=== PATIENT | male | born 1995 | race Caucasian/White ===

== ENCOUNTER 2018-02-22 08:21 | Inpatient (IN) | payer BC, OTHER ==
[~2018-02-22] VITALS: Ht 182.9 cm; Wt 63.5 kg
[2018-02-22] MEDS ORDERED: MAG HYDROX/AL HYDROX/SIMETH 30 ML LIQUID UDC PO PRN (09:30)
[2018-02-22] MEDS ORDERED: CLONIDINE HCL 0.1 MG TABLET PO PRN (09:30)
[2018-02-22] MEDS ORDERED: ACETAMINOPHEN 325 MG TABLET PO PRN (09:30)
[2018-02-22] MEDS ORDERED: DIAZEPAM 5 MG TABLET PO PRN (09:30)
[2018-02-22] MEDS ORDERED: MIRALAX 17 GM POWD.PACK PO PRN (09:30)
[2018-02-22] MEDS ORDERED: DIAZEPAM 10 MG TABLET PO PRN ×2 (09:30)
[2018-02-22] MEDS ORDERED: MAGNESIUM HYDROXIDE 30 ML LIQUID UDC PO PRN (09:30)
[2018-02-22] MEDS ORDERED: METHOCARBAMOL 750 MG TABLET PO PRN (09:30)
[2018-02-22] MEDS ORDERED: LOPERAMIDE HCL 2 MG CAPSULE PO PRN ×2 (09:30)
[2018-02-22] MEDS ORDERED: ONDANSETRON 4 MG/2 ML VIAL IM PRN (09:30)
[2018-02-22] MEDS ORDERED: NICOTINE POLACRILEX 4 MG GUM-PK OF TEN BC PRN (09:30)
[2018-02-22] MEDS ORDERED: DICYCLOMINE HCL 20 MG TABLET PO PRN (09:30)
[2018-02-22] MEDS ORDERED: BUPRENORPHINE HCL 2 MG TAB.SUBL SL PRN (09:30)
[2018-02-22] MEDS ORDERED: diphenhydrAMINE 50 MG CAPSULE PO PRN (09:30)
[2018-02-22] MEDS ORDERED: ONDANSETRON ODT 4 MG TAB.RAPDIS SL PRN (09:30)
[2018-02-22] MEDS ORDERED: LORAZEPAM 2 MG/1 ML VIAL IM PRN (09:30)
[2018-02-22] MEDS ORDERED: IBUPROFEN 600 MG TABLET PO PRN (09:30)
[2018-02-22] MEDS ORDERED: NICOTINE 14 MG/24HR PATCH TD PRN (09:30)
--- NOTE | 2018-02-22 09:55 | NUR ---
PRE-ADMISSION NOTE PATIENT IS A 22YR OLD MALE MET IN INTAKE OFFICE ON 02/22/18 @ 0905. PATIENT PRESENTS UNKEMPT, AVOIDS EYE CONTACT AND IS INTOXICATED FROM RECENT SUBSTANCE USE. HE IS ABLE TO ANSWER QUESTION BUT SOMETIMES LOSES THOUGH PROCESS. VITAL SIGNS: BP 129/81, HR 105, T 98, O2SATS 94%. PATIENT IS HERE FOR DETOXIFICATION OF MULTIPLE SUBSTANCES. PATIENT ADMITTED TO [facility], WILL COMPLETE QUESTIONNAIRE WHEN PT ARRIVES ON FLOOR. COWS 6.
--- NOTE | 2018-02-22 10:15 | NUR ---
ADMISSION NOTE: PATIENT IS A 22 YEAR OLD MALE ADMITTED TO [facility] ON 02/22/18 FOR A MEDICALLY SUPERVISED WITHDRAWAL FROM POLY SUBSTANCES. HE IS INTOXICATE UPON ADMISSION FROM RECENT SUBSTANCE USE AND IS NOT CURRENTLY EXPERIENCING ANY WITHDRAWAL SYMPTOMS, HE IS UNKEMPT AND UNSHAVEN AND AVOIDS EYE CONTACT AND ROCKS BACK AND FORTH ON BED WHILE BEING QUESTIONED. HE HAS A FLAT AFFECT AND APPEARS SAD AND DEPRESSED. HE STATES HIS WITHDRAWAL SYMPTOMS FROM PAST DETOX INCLUDE: ACHY JOINTS, DIARRHEA, NAUSEA, STOMACH PAIN AND CHILLS. 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 HE STATES HE STARTED USING DRUGS AT AGE 10 WHEN HIS BROTHER GAVE HIM METH TO SMOKE AND THEN IT PROGRESSED TO " PRETTY MUCH ANY DRUG OUT THERE". HE STATES THAT THIS LAST RELAPSE WHICH HAS BEEN THE LAST YEAR STARTED WHEN HIS LIVE IN [place] BROKE UP WITH HIM HE WAS USING IN FRONT OF HER CHILD. HE STATES A HISTORY OF WITHDRAWAL INDUCED SEIZURES AND ACCIDENTAL OVERDOSES, THE LAST SEIZURE BEING 9 MONTHS AGO, HE DID NOT SEEK MEDICAL CARE. PATIENT IS 6 FOOT TALL AND WEIGHS 140 LBS PER STANDING SCALE AND HE REPORTS A WEIGHT LOSS OF 30-40 LBS IN THE PAST 3 MONTHS DUE TO BEING ON SO MANY DRUGS AND NOT TAKING CARE OF HIMSELF. PATIENT ARRIVED FROM [place], [place] WHERE HE RESIDED ALONE IN AN APARTMENT, HE STATES HIS MOTHER HELPED HIM TO GET INTO REHAB. HIS BROTHER IS A HEROIN/METH ADDICT AND IS CURRENTLY SERVING A 2YR ALF SENTENCE AND HE STATES HIS SISTER IS ADDICTED TO VYVANSE AND [facility]DERALL. PATIENT STATES HE IS HERE BECAUSE" I'M A DRUG ADDICT AND I NEED HELP, I NEED TO FIND A BETTER WAY TO LIVE AND COMMIT TO IT OR I'M GONNA ". HE STATES THAT HE WILL BE IN A LOT OF TROUBLE IF HE GOES BACK TO [place] HE COMMITTED A FELONY AND WAS CAUGHT, HE STOLE 1000 PILLS AND FINGERPRINTS TAKEN LED BACK TO HIM. SUBSTANCE OF ABUSE HISTORY: BENZODIAZEPINES ( XANAX)( SNORT OR IV) 4-6 MG/DY FOR 1 YEAR LAST USED 02/22/18 -4MG VALIUM 40-60MG /DY ( SNORT /IV) FOR 1 YEAR LAST USED 02/22/18 - 40MG HEROIN IV 0.5-1G/ DY FOR 1 YEAR LAST USED 02/21/18 - 0.5G OXYCODONE NASAL INSUFFLATION 200MG FOR 1 YEAR LAST USED 02/22/18 - 200MG MORPHINE SULFATE PO/IV 90MG DAILY FOR 1 YEAR LAST USED 02/23/16 - 50MG METHAMPHETAMINE 0.5-1G DAILY IV FOR 1 YEAR LAST USED 02/21/18 - 0.5G SOMA/ COCAINE NON DAILY USE PATIENT STATES HE HAS BEEN USING DRUGS AND ALCOHOL FOR 8 YEARS BUT SUCCESSFULLY DETOXED FROM ALCOHOL AND REMAINS IN REMISSION. PATIENT HAS A SCABBED ABSCESS ON LEFT AC AND SCABS ALL OVER LEGS THAT HE PICKS, MD PLACED PT ON PO ANTIBIOTICS. HE STATES HE ATTENDS AA MEETINGS AND HAS A SPONSOR. HE STATES HE REALLY WANTS TO BE SOBER AGAIN OR HE KNOWS NEXT TIME HE WILL PROBABLY OD AND . PATIENT HAS HAD 2 SUICIDE ATTEMPTS, THE FIRST ONE WHEN HE WAS 13 WHERE HE TOOK A LOAD OF PILLS INTENDING TO OVERDOSE BUT WAS NOT SUCCESSFUL, HE STATES NO SI/HI AT THIS TIME OF ADMISSION. PATIENT ADMITTED TO FLOOR, BLOOD LABS DRAWN AND UDS SENT TO LAB CONTINUE TO FOLLOW MD PLAN OF CARE.
[2018-02-22 10:49] LABS: BASOPHILS # (AUTO) 0.1 K/uL (0.0-8.0); BASOPHILS % (AUTO) 0.8 % (0.0-2.0); EOSINOPHILS # (AUTO) 0.3 K/uL (0.0-0.7); EOSINOPHILS % (AUTO) 3.1 % (0.0-7.0); HEMATOCRIT 43.4 % (36.7-47.1); HEMOGLOBIN 14.9 g/dL (12.5-16.3); LYMPHOCYTES # (AUTO) 3.6 K/uL (20.0-40.0); LYMPHOCYTES % (AUTO) 32.4 % (20.5-51.5); MEAN CORPUSCULAR HEMOGLOBIN 29.1 uug (23.8-33.4); MEAN CORPUSCULAR HGB CONC 34 g/dL (32.5-36.3); MEAN CORPUSCULAR VOLUME 84.8 fL (73.0-96.2); MONOCYTES # (AUTO) 1.3 K/uL (2.0-10.0); MONOCYTES % (AUTO) 11.6 % (0.0-11.0); NEUTROPHILS # (AUTO) 5.8 K/uL (1.8-8.9); NEUTROPHILS % (AUTO) 52.1 % (38.5-71.5); PLATELET COUNT (AUTO) 280 K/uL (152-348); RED BLOOD CELL COUNT(AUTO) 5.12 MIL/uL (4.06-5.63); WHITE BLOOD COUNT (AUTO) 11.1 K/uL (3.6-10.2)
[2018-02-22 10:58] LABS: ALANINE AMINOTRANSFERASE 48 U/L (16-63); ALKALINE PHOSPHATASE 80 U/L (50-136); ASPARTATE AMINOTRANSFERASE 71 U/L (15-37); BILIRUBIN,TOTAL 0.3 mg/dL (0.2-1.0); CARBON DIOXIDE 27 mmol/L (21-32); CHLORIDE 103 mmol/L (98-107); CREATININE 1.2 mg/dL (0.6-1.3); GLUCOSE 83 mg/dL (74-106); MAGNESIUM 2.1 mg/dL (1.8-2.4); POTASSIUM 3.5 mmol/L (3.5-5.1); TOTAL PROTEIN, SERUM 7.8 g/dL (6.4-8.2); UREA NITROGEN, BLOOD 17 mg/dL (7-18)
[2018-02-22 11:13] LABS: ETHANOL < 3 MG/DL (0-0)
[2018-02-22 11:25] LABS: THYROID STIMULATING HORMONE 2.573 mIU/mL (0.358-3.740)
[2018-02-22 12:00] VITALS: BP 121/77
[2018-02-22 12:01] LABS: *AMPHETAMINE, URINE POSITIVE (NEGATIVE); *BARBITURATE, URINE NEGATIVE (NEGATIVE); *CANNABINOID, URINE POSITIVE (NEGATIVE); *COCCAINE, URINE POSITIVE (NEGATIVE); *OPIATE, URINE POSITIVE (NEGATIVE); *PHENCYCLIDINE SCREEN,URINE NEGATIVE (NEGATIVE)
[2018-02-22] MEDS: CEPHALEXIN MONOHYDRATE 500 MG CAPSULE PO SCH ×2 (14:46→20:30)
[2018-02-22 16:00] VITALS: BP 116/68
[2018-02-22] MEDS: PHENOBARBITAL 60 MG TABLET PO SCH ×2 (16:38→20:31)
[2018-02-22] MEDS: BUPRENORPHINE HCL 2 MG TAB.SUBL SL SCH ×2 (16:39→20:30)
--- NOTE | 2018-02-22 18:53 | NUR ---
END OF SHIFT : PATIENT IS A 22 YR OLD MALE ADMITTED TO [facility] ON 02/22/18 FOR A MEDICALLY SUPERVISED DETOX FROM BENZODIAZEPINES, OPIATES, METH , COCAINE AND MARIJUANA. HE HAS STARTED A 5 DAY PHENOBARBITAL AND SUBUTEX TAPER TOLERATED WELL. HE APPEARS SAD AND DEPRESSED, IS DISHEVELED AND UNSHAVEN. HIS WITHDRAWAL SYMPTOMS INCLUDE, LETHARGY, CHILLS, SWEATS, DECREASED APPETITE, ACHING JOINTS. NO PRN MEDS WERE REQUESTED OR REQUIRED THIS SHIFT. PT HAD A FLUID INTAKE OF 1800ML, 3 VOIDS AND I BM. COWS 10 AND CIWA 10 @ 1600. CONTINUE TO FOLLOW MD PLAN OF CARE. ENDORSED TO MOVING CONSULTANT.
--- NOTE | 2018-02-22 19:45 | NUR ---
Start of Shift Note Received 22 y/o male nidia, admitted for medically supervised withdrawals from benzos and opiates. Px is placed on 5 day Phenobarbital and 5 day Subutex taper started today, 02/22/2018. Px is tolerating it. Last reported COWS 10 and CIWA 10 by AM shift nurse. During the rounds at 1945, px is awake in his room sitting on the edge of the bed. Px appears disheveled, with dirty finger nails. Px looks anxious, with flat affect. Px has poor eye contact and soft speech. Unfinished snacks and drinks noted on top of bed side table and cabinet. Px stated "My anxiety is high, it's about 7 to 8/10. I have body aches of 6/10." Px complained of watery stools 3x with stomach cramps. Px added "Do I have Seroquel tonight? Seroquel helped me sleep in other facilities." Px was told that he doesn't have Seroquel tonight but he has Benadryl 50 mg PO. Bed on lowest position, side rails up 2x, and call light within reach. We'll continue to monitor.
[2018-02-22 20:00] VITALS: BP 125/71
[2018-02-22] MEDS: GABAPENTIN 300 MG CAPSULE PO SCH (20:30)
[2018-02-22] MEDS: LACTOBACILLUS RHAMNOSUS GG 1 EACH CAPSULE PO SCH (20:30)
--- NOTE | 2018-02-22 20:30 | NUR ---
PRN medications At 2028, px was given Imodium 2 mg/cap, 2 caps PO as PRN med for loose stools. At 2037, Px was given Valium 10 mg/tab, 1 tab PO as PRN med for CIWA 13. At 2150, px was given Benadryl 50 mg/cap, 1 cap PO as PRN med as requested for insomnia. At 2208, px was given Nicotine gum 4 mg as requested by the px. We'll continue to monitor.
--- NOTE | 2018-02-22 21:30 | NUR ---
Reassessment of LBM Px had no episode of loose stool after administration of Imodium 4 mg PO as PRN med. We'll continue to monitor.
--- NOTE | 2018-02-22 21:40 | NUR ---
Reassessment of anxiety Px stated that his anxiety improved. CIWA at this moment is 10. We'll continue to monitor.
--- NOTE | 2018-02-22 23:00 | NUR ---
Reassessment of insomnia Px is still awake after an hour of administration of Benadryl 50 mg PO as PRN med. We'll continue to monitor.
[2018-02-23] VITALS: BP 122/73
[2018-02-23 04:00] VITALS: BP 119/70
--- NOTE | 2018-02-23 04:00 | NUR ---
COWS and CIWA deferred COWS and CIWA deferred at 0000 and 0400 due to the px is asleep, to assess if the px is awake per doctor's order. We'll continue to monitor.
--- NOTE | 2018-02-23 07:10 | NUR ---
End of Shift Note During the shift at 2038, px received Imodium 4 mg PO for 3x loose stools. It was effective. At 2038, px received Valium 10 mg PO for CIWA 13 as PRN med, it was effective. CIWA dropped to 10. At 2150, px received Benadryl 50 mg PO for insomnia. It was effective. Px slept for 6.5 hours. At 2208, px received Nicotine gum 4 mg. Px's oral intake is 1 L, voided 2x, without BM. At 06, px is asleep on bed in fowlers position. Last COWS 10 and CIWA 10. Bed on lowest position, side rails up 2x, and call light within reach. We'll continue to monitor. Px endorsed to AM shift nurse.
--- NOTE | 2018-02-23 07:30 | NUR ---
Start of Shift Note Pt. is a 22 y/o male admitted for the medically supervised withdrawal of Opiates, and Benzodiazepines. Pt. was placed on a 5 day Phenobarbital, and a 5 day Subutex taper. During the PM shift the pt. received PRN Imodium 4 mg PO for 3x loose stool, Valium 10 mg PO for CIWA 13 and Benadryl 50 mg PO for insomnia. Pt. slept for 6.5 hours. Endorsed pt. is behaviorally appropriate and follows directions. Received pt. in his room laying on his bed with his eyes closed. Pt. responds to name and touch. Room is malodorous and unkempt. Last COWS 10 and CIWA 10. Bed on lowest position, side rails up 2x, and call light within reach. Will continue to monitor pt.s behavior for safety.
[2018-02-23 08:20] VITALS: BP 114/72
[2018-02-23] MEDS: GABAPENTIN 300 MG CAPSULE PO SCH (08:57)
[2018-02-23] MEDS: CEPHALEXIN MONOHYDRATE 500 MG CAPSULE PO SCH (08:59)
[2018-02-23] MEDS: LACTOBACILLUS RHAMNOSUS GG 1 EACH CAPSULE PO SCH (08:59)
[2018-02-23] MEDS ORDERED: TUBERCULIN,PURIF.PROT.DERIV. 5 TU/0.1 ML TEST ID ONE (09:00)
[2018-02-23] MEDS ORDERED: PHENOBARBITAL 60 MG TABLET PO SCH (09:00)
[2018-02-23] MEDS ORDERED: BUPRENORPHINE HCL 2 MG TAB.SUBL SL SCH (09:00)
--- NOTE | 2018-02-23 10:05 | NUR ---
AMA Pt. stated that he did not want to be here any more. Pt. states "I have friends and a better place to go than here, I'm not ready to for this." Pt. educated on the risk and consequences for leaving AMA. Pt. verbalize understanding of AMA decision. Multiple staff members including this service writer, Dr. Sheehan and Case management spoke to the pt. Pt. still refused to stay. V.S. WNL during time of discharge. Pt. is A/O X 4 and refused any SI/HI. Pt. given D/C paperwork to sign and copies made and put in chart. All belongings returned to pt. and he was escorted out the unit at this time by staff.
[2018-02-23 13:06] LABS: HEPATITIS B SURFACE AG Negative (Negative)
[2018-02-23] MEDS ORDERED: HYDROXYZINE PAMOATE 25 MG CAPSULE PO PRN (15:30)
[2018-02-24] MEDS ORDERED: BUPRENORPHINE HCL 2 MG TAB.SUBL SL SCH ×2 (09:00→15:00)
[2018-02-24] MEDS ORDERED: PHENOBARBITAL 60 MG TABLET PO SCH (09:00)
[2018-02-25] MEDS ORDERED: PHENOBARBITAL 60 MG TABLET PO SCH (09:00)
[2018-02-26] MEDS ORDERED: BUPRENORPHINE HCL 2 MG TAB.SUBL SL SCH (09:00)
[2018-02-26] MEDS ORDERED: PHENOBARBITAL 60 MG TABLET PO SCH (09:00)
== END 2018-02-23 10:07 | disposition left against medical advice (07) | DRG 894 ==
LOC: EDBD 09:01 → SRC 09:01
PROVIDERS: ADMIT Internal Medicine; ATTEND Internal Medicine
PROC: HZ2ZZZZ Detoxification Services for Substance Abuse Treatment (ICD-10-PCS; principal; 2018-02-22)
DX: F13.239 Sedative, hypnotic or anxiolytic dependence with withdrawal, unspecified (principal); F15.20 Other stimulant dependence, uncomplicated; Z86.74 Personal history of sudden cardiac arrest; L03.114 Cellulitis of left upper limb; L03.113 Cellulitis of right upper limb; F11.23 Opioid dependence with withdrawal; S51.032S Puncture wound without foreign body of left elbow, sequela; S51.031S Puncture wound without foreign body of right elbow, sequela; X78.8XXS Intentional self-harm by other sharp object, sequela; Z91.5 Personal history of self-harm; F17.210 Nicotine dependence, cigarettes, uncomplicated; Z81.1 Family history of alcohol abuse and dependence; F10.21 Alcohol dependence, in remission; F32.9 Major depressive disorder, single episode, unspecified; F14.10 Cocaine abuse, uncomplicated
CPT/HCPCS: 36415; 80307; 80324; 80346; 80349; 80353; 80361; 83735; 84443; 85025; 86592; 86705; 86803; 87040; 87340; 87806; G0480; J8499; Q0163

== ENCOUNTER 2018-02-23 16:35 | Inpatient (IN) | payer BC, OTHER ==
[~2018-02-23] VITALS: Ht 182.9 cm; Wt 63.5 kg
--- NOTE | 2018-02-23 17:40 | NUR ---
PRE ADMISSION Patient at intake office, presents calm and cooperative, patient was admitted to [facility] on 02/22/2018 at 1015, but left AMA on 02/23/2018 at 1007, patient returned to [facility] on 02/23/2018 at 1740. Patient reports he left [facility] and walked around, and went to a bar, where he consumed half of a mixed drink, rum and coke, patient denies any drug use. Patient bp: 131/81 hr: 74 t: 98.0 r: 15 o2 sat: 100% room air. Patient reports he wants to complete his detox, and is motivated towards his sobriety. Patient denies any allergies. Patient was educated regarding unit policies and procedures. Dr. Sissy willams.
--- NOTE | 2018-02-23 18:22 | NUR ---
ADMISSION Patient on unit at 1822, patients body search completed by male intake staff, no contraband was found. Patients body assessment completed, noted with multiple scabs on body, per patient picks no his skin noted with scab on left arm. Patient is 140 lbs and is 6 feet tall. Reports family history of substance use: brother and sister, both use drugs. Patient was re oriented to unit and to room, education regarding call light was provided. Patients Patient bp: 131/81 hr: 74 t: 98.0 r: 15 o2 sat: 100% room air. Patient was admitted to [facility] on 02/22/2018 at 1015, but left AMA on 02/23/2018 at 107, patient returned to [facility] on 02/23/2018 at 1730. Patient reports he left [facility] and walked around, and went to a bar, where he consumed half of a mixed drink, rum and coke, patient denies any drug use. Patient noted disheveled, has poor eye contact, noted with flat affect and anxious, depressed mood. Reports treatment history of: [facility], 4 years ago. Patient reports his longest period of sobriety was for 9 months, 3 or 4 years ago. Patient reports he began using drugs at the age of 10, since then has been using any substance " any drug out there". Reports one year ago, he began using on a daily basis after a break up with his girlfriend. Patient reports substance use history of: 1. Xanax (intranasally or IV) 4-6 MG daily for one year, last used 02/22/2018-4m 2. Valium (intranasally or IV) 40-60MG daily for one year, last used 02/22/2018, 40mg 3. oxycodone (intranasally) 200mg daily for one year, last used 02/22/2018-50mg 4. morphine sulfate (PO/IV) 90mg daily for one year last used 02/22/2018-50mg 5. heroin (IV) 0.5-1gram) daily for one year, last used 02/21/2018-0.5grams 6. methamphetamine 0.5-1gram daily IV for one year, last used 02/21/2018 0.5gram Patient reports that when he left [facility] AMA, he only had half a drink of rum and coke, patient denies using any of the above substance. Patients respirations are even and unlabored, lungs clear upon auscultations. Patient reports past medical history of: asthma, depression, and genital herpes. Patients abdomen is soft and non distended, bowel sounds heard in all quadrants. Patients with admitting cow score of: 7 and ciwa score of: 8. Safety measures are in place. Call light kept with in reach, will continue to monitor closely. Patient was seen by dr. phillips at intake office.
[2018-02-23] MEDS ORDERED: MIRALAX 17 GM POWD.PACK PO PRN (18:30)
[2018-02-23] MEDS ORDERED: ONDANSETRON 4 MG/2 ML VIAL IM PRN (18:30)
[2018-02-23] MEDS ORDERED: ONDANSETRON ODT 4 MG TAB.RAPDIS SL PRN (18:30)
[2018-02-23] MEDS ORDERED: CLONIDINE HCL 0.1 MG TABLET PO PRN (18:30)
[2018-02-23] MEDS ORDERED: MAGNESIUM HYDROXIDE 30 ML LIQUID UDC PO PRN (18:30)
[2018-02-23] MEDS ORDERED: IBUPROFEN 600 MG TABLET PO PRN (18:30)
[2018-02-23] MEDS ORDERED: diphenhydrAMINE 50 MG CAPSULE PO PRN (18:30)
[2018-02-23] MEDS ORDERED: DIAZEPAM 5 MG TABLET PO PRN (18:30)
[2018-02-23] MEDS ORDERED: DIAZEPAM 10 MG TABLET PO PRN (18:30)
[2018-02-23] MEDS ORDERED: DICYCLOMINE HCL 20 MG TABLET PO PRN (18:30)
[2018-02-23] MEDS ORDERED: METHOCARBAMOL 750 MG TABLET PO PRN (18:30)
[2018-02-23] MEDS ORDERED: NICOTINE 14 MG/24HR PATCH TD PRN (18:30)
[2018-02-23] MEDS ORDERED: LORAZEPAM 2 MG/1 ML VIAL IM PRN (18:30)
[2018-02-23] MEDS ORDERED: MAG HYDROX/AL HYDROX/SIMETH 30 ML LIQUID UDC PO PRN (18:30)
[2018-02-23] MEDS ORDERED: BUPRENORPHINE HCL 2 MG TAB.SUBL SL PRN (18:30)
[2018-02-23] MEDS ORDERED: NICOTINE POLACRILEX 4 MG GUM-PK OF TEN BC PRN (18:30)
[2018-02-23] MEDS ORDERED: ACETAMINOPHEN 325 MG TABLET PO PRN (18:30)
[2018-02-23] MEDS ORDERED: LOPERAMIDE HCL 2 MG CAPSULE PO PRN ×2 (18:30)
--- NOTE | 2018-02-23 18:59 | NUR ---
END OF SHIFT Patient admitted during shift, with Dx: opiate/bzo withdrawal. Continues under very close observation. Patients endorsed to overnight stocker nurse, all pertinent information was discussed. patient with last cow score of: 7 and ciwa score of: 8 presenting with: c/o chills, difficulty sitting still, mild bone and joint aches, tremors that can be felt but not seen, and anxiety. Safety measures are in place. Call light kept within reach, will continue to monitor closely.
[2018-02-23 19:19] LABS: *AMPHETAMINE, URINE NEGATIVE (NEGATIVE); *BARBITURATE, URINE POSITIVE (NEGATIVE); *CANNABINOID, URINE POSITIVE (NEGATIVE); *COCCAINE, URINE NEGATIVE (NEGATIVE); *OPIATE, URINE POSITIVE (NEGATIVE); *PHENCYCLIDINE SCREEN,URINE NEGATIVE (NEGATIVE)
--- NOTE | 2018-02-23 19:46 | NUR ---
START OF SHIFT NOTE Rcvd. Report from outgoing nurse. Pt. is in his room and is A/O to person, place, time, and purpose. Pt. presents w/ anxiety, agitation, depressed and withdrawn mood, disheveled and unkempt appearance, flushed face, chills, sweats, body aches, and running nose. Pt. rcvd no PRN medications. Pt. is not yet on a taper. Pt. denies S/I and H/i. Last COWS 7 and CIWA 8 @ 1830. Call light within reach. Pt. will continue to be monitored and needs met.
[2018-02-23 19:51] LABS: BASOPHILS # (AUTO) 0.1 K/uL (0.0-8.0); BASOPHILS % (AUTO) 0.8 % (0.0-2.0); EOSINOPHILS # (AUTO) 0.2 K/uL (0.0-0.7); EOSINOPHILS % (AUTO) 2.4 % (0.0-7.0); HEMOGLOBIN 13.1 g/dL (12.5-16.3); LYMPHOCYTES # (AUTO) 2.6 K/uL (20.0-40.0); LYMPHOCYTES % (AUTO) 27.5 % (20.5-51.5); MEAN CORPUSCULAR HEMOGLOBIN 29.3 uug (23.8-33.4); MEAN CORPUSCULAR HGB CONC 35 g/dL (32.5-36.3); MEAN CORPUSCULAR VOLUME 84.7 fL (73.0-96.2); MONOCYTES # (AUTO) 0.9 K/uL (2.0-10.0); MONOCYTES % (AUTO) 9.9 % (0.0-11.0); NEUTROPHILS # (AUTO) 5.5 K/uL (1.8-8.9); NEUTROPHILS % (AUTO) 59.4 % (38.5-71.5); PLATELET COUNT (AUTO) 258 K/uL (152-348); RED BLOOD CELL COUNT(AUTO) 4.48 MIL/uL (4.06-5.63); WHITE BLOOD COUNT (AUTO) 9.3 K/uL (3.6-10.2)
[2018-02-23 20:00] VITALS: BP 135/92
[2018-02-23 20:06] LABS: ETHANOL < 3 MG/DL (0-0)
[2018-02-23 20:10] LABS: ALANINE AMINOTRANSFERASE 92 U/L (16-63); ALKALINE PHOSPHATASE 73 U/L (50-136); ASPARTATE AMINOTRANSFERASE 98 U/L (15-37); BILIRUBIN,TOTAL 0.2 mg/dL (0.2-1.0); CARBON DIOXIDE 29 mmol/L (21-32); CHLORIDE 104 mmol/L (98-107); GLUCOSE 94 mg/dL (74-106); MAGNESIUM 1.9 mg/dL (1.8-2.4); TOTAL PROTEIN, SERUM 7.4 g/dL (6.4-8.2); UREA NITROGEN, BLOOD 13 mg/dL (7-18)
[2018-02-23] MEDS: GABAPENTIN 300 MG CAPSULE PO SCH (20:10)
[2018-02-23] MEDS: BUPRENORPHINE HCL 2 MG TAB.SUBL SL SCH ×2 (20:11→22:00)
[2018-02-23] MEDS: DIAZEPAM 10 MG TABLET PO PRN (20:11)
[2018-02-23] MEDS: CEPHALEXIN MONOHYDRATE 500 MG CAPSULE PO SCH (20:11)
[2018-02-23] MEDS: PHENOBARBITAL 60 MG TABLET PO SCH ×2 (20:11→22:00)
--- NOTE | 2018-02-23 20:11 | NUR ---
PRN ADMINISTRATION Pt. rcvd PRN Valium 10 mg for anxiety and panic attack, COWS 10. Will reassess pt. in 1 hr.
[2018-02-23] MEDS: LACTOBACILLUS RHAMNOSUS GG 1 EACH CAPSULE PO SCH (20:12)
--- NOTE | 2018-02-23 21:11 | NUR ---
PRN REASSESSMENT Pt. is in his room watching TV in bed. Pt. breathing is even and unlabored. Pt. states relief ofd symptoms.
--- NOTE | 2018-02-23 21:29 | NUR ---
PRN ADMINSTRATION Pt. rcvd PRN Nicotine gum, per pt.'s request. Pt. states they don't want to smoke. Will assess effectiveness in 1 hr.
--- NOTE | 2018-02-23 21:34 | NUR ---
PRN ADMINISTRATION Pt. rcvd PRN Benadryl 50 mg for itching. Will reassess in 1 hr.
[2018-02-23] MEDS ORDERED: PHENOBARBITAL 60 MG TABLET PO SCH (22:00)
--- NOTE | 2018-02-23 22:29 | NUR ---
PRN REASSESSMENT PRN medication effective. Pt. states no desire to smoke.
--- NOTE | 2018-02-23 22:34 | NUR ---
PRN REASSESSMENT Pt. is in bed w/ his eyes closed. Pt.'s breathing is unlabored and even.
--- NOTE | 2018-02-24 00:01 | NUR ---
RN NOTE Pt. deferred COWS and CIWA. Pt. refused V/S. Pt. is in bed w/ his eyes closed. Pt.'s breathing is unlabored even.
--- NOTE | 2018-02-24 04:01 | NUR ---
RN NOTE Pt deferred COWS and CIWA, and refused V/S. Pt. is in bed w/ his eyes closed. Pt.'s breathing is unlabored and even.
--- NOTE | 2018-02-24 07:12 | NUR ---
END OF SHIFT NOTE Endorsed pt. to oncoming nurse. Pt. is a 22 y/o male A/O to person, place, time, and purpose. Pt. was admitted for medically supervised withdrawal from Opiates and Benzodiazepines. Pt. continues to present w/ anxiety, agitation, depressed and withdrawn mood, disheveled and unkempt appearance, flushed face, chills, sweats, body aches, and running nose. Pt. rcvd PRN Vlium 10 mg @ 2010 for increased anxiety and Benadryl 50 mg @ 2133 for itchiness, both noted effective. Pt.s fluid intake was 855 ml. Pt. voided 2 times and slept for 7 hrs. Last COWS 10 and CIWA 12 @ 1999. Call light within reach.
--- NOTE | 2018-02-24 07:19 | NUR ---
BEGINNING OF SHIFT Patient endorsement report received from casino shift manager nurse, all pertinent information discussed. Patient is a 22 year old male with admitting Dx: Opiate/BZO withdrawal. Patient currently under close observation, patient currently with ongoing phenobarbital and Subutex taper, as ordered. patients fall and seizure precautions in place and observed at all times. Patient received in bed with eyes closed, respirations are even and unlabored, responsive to verbal stimuli. will monitor closely, will educated regarding plan of care for the day, and medication regimen. Patient received PRN: Valium and Benadryl during casino shift manager. last ciwa score of: 12, cow score of: 10. patient slept 7 hours. will continue to monitor closely. safety measures in place.
[2018-02-24 08:33] VITALS: BP 151/97
[2018-02-24] MEDS: LACTOBACILLUS RHAMNOSUS GG 1 EACH CAPSULE PO SCH ×2 (08:34→20:48)
[2018-02-24] MEDS: GABAPENTIN 300 MG CAPSULE PO SCH ×3 (08:34→20:48)
[2018-02-24] MEDS: PHENOBARBITAL 60 MG TABLET PO SCH ×3 (08:34→20:47)
[2018-02-24] MEDS: CEPHALEXIN MONOHYDRATE 500 MG CAPSULE PO SCH ×3 (08:34→20:47)
[2018-02-24] MEDS: BUPRENORPHINE HCL 2 MG TAB.SUBL SL SCH ×3 (08:35→20:47)
[2018-02-24] MEDS ORDERED: TUBERCULIN,PURIF.PROT.DERIV. 5 TU/0.1 ML TEST ID ONE (09:00)
[2018-02-24 10:35] VITALS: BP 144/75
[2018-02-24] MEDS: DIAZEPAM 10 MG TABLET PO PRN (10:36)
--- NOTE | 2018-02-24 10:36 | NUR ---
PRN VALIUM Patient presented with: difficulty sitting still, patient noted pacing in room, unable to sit still, patient with wringing hands, and fidgety. Patient also presented with: tremors, increase anxiety, and restlessness with ciwa score of: 13. Patient was administered valium 10mg PO as ordered for s/sx of withdrawal. will monitor effectiveness of medication. bp: 144/15 p: 92.
--- NOTE | 2018-02-24 11:36 | NUR ---
VALIUM REASSESSMENT Patient presented with decrease in restlessness, current ciwa score of: 12. will continue to monitor closely.
[2018-02-24 13:21] VITALS: BP 138/89
[2018-02-24 17:11] VITALS: BP 143/82
--- NOTE | 2018-02-24 17:11 | NUR ---
Therapist prompted client to attend daily group sessions. Client related that he would make an attempt to attend the next group.
[2018-02-24] MEDS: HYDROXYZINE PAMOATE 25 MG CAPSULE PO PRN (17:29)
--- NOTE | 2018-02-24 17:31 | NUR ---
PRN CLONIDINE/VISTARIL Patient administered clonidine 0.1mg PO and Vistaril 25mg PO as ordered for increase anxiety, patient noted with restlessness and unable to sit still, provided with non pharmacological interventions with no relief, will monitor effectiveness of medications. safety measures in place, call light kept with in reach, will continue to monitor.
--- NOTE | 2018-02-24 17:46 | NUR ---
ENDORSED CARE/end of shift Patient monitored closely during shift. Patient alert and oriented x4. Admitting Dx: Opiate/BZO withdrawal. Patient noted disheveled, with depressed, and anxious mood. Patient has flat affect, and poor eye contact. Patient continues on phenobarbital and Subutex taper as ordered. During shift patient presented with: c/o chills, c/o hot/cold feeling, difficulty sitting still, bone and joint aches, nasal congestion, abdominal cramps, tremors, anxiety, gooseflesh, initial cow score of: 15, and ciwa score of: 13, last cow score of: 12, and ciwa score of: 13. Received PRN: Valium 10mg PO for s/sx of withdrawal as ordered during shift, medication effective one hour post administration. Patient also was administered Clonidine and Vistaril as ordered for increase anxiety, and restlessness. Detox medication effective at reducing withdrawal symptoms. Patient encouraged participation in therapy sessions, patient denies any SI/HI, noted attending and participating. Patient was encouraged to verbalize feelings, encouraged to develop coping skills and utilization of non pharmacological interventions. Encouraged patient to increase PO fluid intake as tolerated. Patients safety measures are in place. call light kept within reach, will continue to monitor. Patient endorsed care to staff nurse, all pertinent information was discussed.
--- NOTE | 2018-02-24 17:47 | NUR ---
ENDORSEMENT Pt endorsed to me by nurse. All information received.
--- NOTE | 2018-02-24 18:31 | NUR ---
JAZZ REID Pt observed in room on bed watching television.
--- NOTE | 2018-02-24 19:14 | NUR ---
ENDORSED CARE/end of shift Pt endorsed to me and then endorsed to next shift.
--- NOTE | 2018-02-24 19:55 | NUR ---
START OF SHIFT NOTE Rcvd report from outgoing nurse. Pt is in his room. Pt. is 22 y/o male A/O to person, place, time, and purpose. Pt. was admitted for medically supervised withdrawal from Opiates and Benzodiazepines. Pt. presents w/ anxiety agitation, flat affect, withdrawn mood, sweats, chills, body aches, disheveled and unkempt appearance, and odorous. Pt. rcvd PRN Valium @ 1036 and Clonidine and Vistaril @ 1730, both noted effective. Pt. denies S/I and H/I. Last COWS 12 and CIWA 12 @ 1600. Call light within reach. Pt. will continue to be monitored and needs met.
[2018-02-24 20:00] VITALS: BP 113/78
[2018-02-24] MEDS: CLONIDINE HCL 0.1 MG TABLET PO SCH (20:48)
--- NOTE | 2018-02-25 00:10 | NUR ---
COWS AND CIWA DEFERRED. V/S REFUSED 0000 COWS and CIWA deferred and V/S refused by pt. Pt. is in bed w/ his eyes closed. Pt.'s breathing is unlabored and even.
--- NOTE | 2018-02-25 04:08 | NUR ---
COWS AND CIWA DEFERRED. V/S REFUSED 0400 COWS and CIWA deferred, and V/S refused by pt. Pt. is in bed w/ his eyes closed. Pt.'s breathing is unlabored and even.
--- NOTE | 2018-02-25 07:15 | NUR ---
END OF SHIFT NOTE Endorsed pt. to oncoming nurse. Pt is in his room. Pt. is 22 y/o male A/O to person, place, time, and purpose. Pt. was admitted for medically supervised withdrawal from Opiates and Benzodiazepines. Pt. continues to present w/ anxiety agitation, flat affect, withdrawn mood, sweats, chills, body aches while awake. Pt. also had a odorous, disheveled, and unkempt appearance. Pt. rcvd no PRN medications during the night. Pt. continues to deny S/I and H/I. Pt.s fluid intake was 355 ml. Pt. voided 1 time and slept for 9 hrs. Last COWS 10 and CIWA 12 @ 1999. Call light within reach.
--- NOTE | 2018-02-25 07:30 | NUR ---
Start of Shift Note Pt is a 22 y/o , male admitted for the medically supervised withdrawal of opiates, benzodiazepines, and Methamphetamines. Pt. was placed on a Subutex and Phenobarbital taper. Received pt. in his room. Pt. is A/O X 4. Pt. is disheveled, malodorous, with and cluttered room. Upon approach pt. has a depressed effect, with poor eye contact, and a guarded demeanor. Pt. reports body aches and presents with facial flushing and fine hand tremors. No PRN medications were given during the night. Pt. continues to deny S/I and H/I. Pt. slept for 9 hrs. Last COWS 10 and CIWA 12 @ 1999. Encouraged pt. to keep his personal space clean and tidy. Encouraged to verbalize any concerns and emotions. Will continue to monitor pt's behavior for safety.
[2018-02-25 08:00] VITALS: BP 128/87
[2018-02-25] MEDS: LACTOBACILLUS RHAMNOSUS GG 1 EACH CAPSULE PO SCH ×2 (08:51→21:56)
[2018-02-25] MEDS: CEPHALEXIN MONOHYDRATE 500 MG CAPSULE PO SCH ×3 (08:51→21:56)
[2018-02-25] MEDS: CLONIDINE HCL 0.1 MG TABLET PO SCH ×2 (08:52→21:57)
[2018-02-25] MEDS: GABAPENTIN 300 MG CAPSULE PO SCH ×3 (08:53→21:57)
[2018-02-25] MEDS: VENLAFAXINE XR 75 MG CAP.SR.24H PO SCH (08:53)
[2018-02-25] MEDS ORDERED: PHENOBARBITAL 60 MG TABLET PO SCH ×2 (09:00→21:00)
[2018-02-25] MEDS ORDERED: BUPRENORPHINE HCL 2 MG TAB.SUBL SL SCH (09:00)
[2018-02-25 12:00] VITALS: BP 112/71
[2018-02-25 12:07] LABS: HEPATITIS B SURFACE AG Negative (Negative)
[2018-02-25] MEDS: PHENOBARBITAL 60 MG TABLET PO SCH ×2 (13:16→17:07)
[2018-02-25] MEDS: BUPRENORPHINE HCL 2 MG TAB.SUBL SL SCH ×2 (15:05→21:57)
[2018-02-25 16:00] VITALS: BP 109/70
--- NOTE | 2018-02-25 19:20 | NUR ---
Start of Shift Note Pt is a 22 y/o , male admitted for the medically supervised withdrawal of opiates, benzodiazepines, and Methamphetamines. Pt. was placed on a Subutex and Phenobarbital taper. Pt. is A/O X 4. Upon approach pt. has a depressed effect, with poor eye contact, and a guarded demeanor. Throughout the shift the pt. presented with facial flushing and fine hand tremors. No PRN medications were given during day shift. Pt. continues to deny S/I and H/I. Pt. compliant with treatment plan and medication regiment. Last COWS 10 and CIWA 13 @ 1600. Pt. had 1250 of PO intake and voided x 2, BM X 1. Encouraged pt. to keep his personal space clean and tidy. Encouraged to verbalize any concerns and emotions. Will endorse pt.'s care to oncoming shift.
--- NOTE | 2018-02-25 19:25 | NUR ---
START OF SHIFT Patient is a 22-year-old male admitted on 02/23/18 for opiate and benzo withdrawal. Patient is currently on a 5-day Phenobarbital and 5-day Subutex taper, tolerating well, scheduled to complete both tapers on 02/28/18. Patients last COWS was 10, last CIWA was 13, per endorsement. Patient received no PRN medications today. Upon assessment, patient appears sleepy and disheveled, he is withdrawn to his room. Patients room is cluttered and bed is unmade. Patient is on fall and seizure precautions, last seizure reportedly took place nine months ago. Safety measures in place, side rails up x2, bed locked in low position, call light within reach. Will continue to monitor.
[2018-02-25 20:00] VITALS: BP 125/77
[2018-02-25] MEDS: DIAZEPAM 10 MG TABLET PO PRN (22:15)
--- NOTE | 2018-02-25 22:15 | NUR ---
PRN VALIUM 10mg Patient reports increased anxiety, difficulty sleeping, agitation and restlessness. Current CIWA of 10. PRN Valium 10mg given PO. Respirations are even and unlabored. Safety measures in place, side rails up x2, bed locked in low position, call light within reach. Will monitor for effectiveness.
--- NOTE | 2018-02-25 23:15 | NUR ---
PRN VALIUM REASSESSMENT Patient reports decreased anxiety, current CIWA is 6 upon reassessment. PRN Valium effective. Safety measures in place, side rails up x2, bed locked in low position, call light within reach. Will continue to monitor.
--- NOTE | 2018-02-26 | NUR ---
VITALS REFUSED, COWS & CIWA DEFERRED Patient refused to be woken/disturbed for midnight vitals. COWS and CIWA deferred due to patient sleeping; to be assessed and scored while patient is awake. Respirations even and unlabored, 14/min. Safety measures in place, side rails up x2, bed locked in low position, call light within reach. Will continue to monitor.
--- NOTE | 2018-02-26 04:00 | NUR ---
VITALS REFUSED, COWS & CIWA DEFERRED Patient refused to be woken/disturbed for vital signs at 0400. COWS and CIWA deferred due to patient sleeping. Respirations even and unlabored, 16/min. Safety measures in place, side rails up x2, bed locked in low position, call light within reach. Will continue to monitor.
--- NOTE | 2018-02-26 07:05 | NUR ---
END OF SHIFT Patient is a 22-year-old male admitted on 02/23/18 for opiate and benzo withdrawal. Patient is currently on a 5-day Phenobarbital and 5-day Subutex taper, tolerating well, scheduled to complete both tapers on 02/28/18. Patients last COWS was 8, last CIWA was 6. Patient received PRN Valium 10mg PO for CIWA of 10 at 2215. PRN Valium was effective in reducing patients anxiety and CIWA score, reassessed at 2315. Patient slept for 7 hours, total intake of 1,355mL, void x3, stool x0. Patient is on fall and seizure precautions, last seizure reportedly took place nine months ago. Safety measures in place, side rails up x2, bed locked in low position, call light within reach. Will endorse to day shift.
--- NOTE | 2018-02-26 07:30 | NUR ---
Start of Shift Implementation Manager received report on 22 year old male admitted to [facility] on 02/23/18 for medical management of Benzodiazepine, Opiate and methamphetamine withdrawals. Pt endorses NKA, full code and regular diet. PMH of Asthma, Herpes and history of withdrawal related seizures, last approximately 9 months ago. PPH to include depression. Pt currently on Phenobarbital and Subutex tapers, has been tolerating well, with last COWS 8 and CIWA 6, recorded at 2315 per NOC report. PRN Valium(10 mg) administered on NOC, per report. Implementation Manager encounters pt in [place]. Pt is A/O x4 and ambulatory. Calm and cooperative and makes his needs known. Clear of thought and speech. Flat affect with a congruent mood. Pt with no complaints at this time and acknowledges the effectiveness of prescribed medication. Will continue to monitor, support and encourage according to plan of care.
[2018-02-26 08:32] VITALS: BP 108/71
[2018-02-26] MEDS: CLONIDINE HCL 0.1 MG TABLET PO SCH ×2 (08:46→20:45)
[2018-02-26] MEDS: VENLAFAXINE XR 75 MG CAP.SR.24H PO SCH (08:47)
[2018-02-26] MEDS: CEPHALEXIN MONOHYDRATE 500 MG CAPSULE PO SCH ×3 (08:47→20:42)
[2018-02-26] MEDS: LACTOBACILLUS RHAMNOSUS GG 1 EACH CAPSULE PO SCH ×2 (08:47→20:43)
[2018-02-26] MEDS: PHENOBARBITAL 60 MG TABLET PO SCH ×3 (08:47→20:43)
[2018-02-26] MEDS: GABAPENTIN 300 MG CAPSULE PO SCH ×3 (08:47→20:43)
[2018-02-26] MEDS: BUPRENORPHINE HCL 2 MG TAB.SUBL SL SCH ×3 (08:47→20:42)
[2018-02-26] MEDS ORDERED: KETOROLAC TROMETHAMINE 30 MG INJ IM PRN (10:45)
[2018-02-26 12:02] VITALS: BP 135/63
--- NOTE | 2018-02-26 12:50 | NUR ---
Client was encouraged to attend group sessions and client agreed.
[2018-02-26] MEDS: HYDROXYZINE PAMOATE 25 MG CAPSULE PO PRN ×2 (14:28→21:17)
--- NOTE | 2018-02-26 14:28 | NUR ---
PRN Vistaril Pt complains of anxiety and requests Valium, as per PRN orders last eveing. Optic Fibre Drawer educated pt, sba underwriter had Vistaril available and can administer. Pt is working on art project and using non-pharmacological interventions, but requests the medication. Optic Fibre Drawer administered Vistaril per order, with tolerating well. Will continue to monitor, support and encourage according to plan of care.
--- NOTE | 2018-02-26 15:28 | NUR ---
PRN Vistaril Re-Assessment Medication effective, pt has been playing cards on the patio and resting with anxiety level decreased as endorsed by pt. Will continue to monitor, support and encourage according to plan of care.
[2018-02-26 16:47] VITALS: BP 132/87
--- NOTE | 2018-02-26 19:00 | NUR ---
End of Shift Inpatient Care Manager Rn provided report on 22 year old male admitted to [facility] on 02/23/18 for medical management of Benzodiazepine, Opiate and methamphetamine withdrawals. Pt endorses NKA, full code and regular diet. PMH of Asthma, Herpes and history of withdrawal related seizures, last approximately 9 months ago. PPH to include depression. Pt currently on Phenobarbital and Subutex tapers, has been tolerating well, with last COWS 6 and CIWA 8, recorded at 1630. PRN Vistaril(anxiety) administered on my shift. Pt is A/O x4 and ambulatory. Calm and cooperative and makes his needs known. Clear of thought and speech. Pt has brightened thru out the day with bouts of moderate anxiety. Pt endorsed relief from some anxiety, but remains anxious.
[2018-02-26 20:00] VITALS: BP 115/71
--- NOTE | 2018-02-26 20:00 | NUR ---
START OF SHIFT NOTE RECEIVED REPORT FROM DAY SHIFT NURSE. PATIENT IS A 22 YEAR OLD MALE ADMITTED FOR OPIATE/BENZO WITHDRAWAL. PATIENT IS ON PHENOBARBITAL/SUBUTEX TAPER. LAST COWS 6 AND CIWA 8. PATIENT WAS GIVEN PRN VISTARIL. RECEIVED PATIENT IN THE ROOM. GARBAGE AROUND ROOM AND CLOTHES THROWN ON FLOOR. PATIENT PRESENTS WITH FLAT AFFECT, DISHEVELED, ANXIOUS, RESTLESS, HOT AND COLD SWEATS, ABDOMINAL CRAMPING, STUFFY NOSE, YAWNING AND FATIGUE. SAFETY MEASURES IN PLACE. CALL LIGHT IN REACH. WILL CONTINUE TO MONITOR.
[2018-02-26] MEDS: BACLOFEN 10 MG TABLET PO SCH (20:43)
[2018-02-26] MEDS: QUETIAPINE FUMARATE 25 MG TABLET PO PRN (20:44)
--- NOTE | 2018-02-26 20:44 | NUR ---
PRN SEROQUEL ADMINISTRATION PATIENT REQUESTS FOR SLEEP AID. WILL CONTINUE TO MONITOR
--- NOTE | 2018-02-26 21:17 | NUR ---
PRN VISTARIL ADMINISTRATION PATIENT C/O ANXIETY. WILL MONITOR FOR EFFECTIVENESS
--- NOTE | 2018-02-26 21:21 | NUR ---
PRN IMODIUM ADMINISTRATION PATIENT IS HAVING EPISODE OF DIARRHEA . ENCOURAGE FLUIDS. WILL MONITOR FOR EFFECTIVENESS
--- NOTE | 2018-02-26 22:17 | NUR ---
PRN VISTARIL RE-ASSESSMENT PATIENT STATES VISTARIL IS HELPFUL. PATIENT IS LESS ANXIOUS, HE STATES.
--- NOTE | 2018-02-26 23:00 | NUR ---
PRN SEROQUEL RE-ASSESSMENT PATIENT IN BED WITH EYES CLOSED. RESPIRATION EVEN AND UNLABORED. WILL CONTINUE TO MONITOR
--- NOTE | 2018-02-27 | NUR ---
COWS/CIWA DEFERRED PATIENT IN BED WITH EYES CLOSED. RESPIRATION EVEN AND UNLABORED. VS REFUSED. SAFETY MEASURES IN PLACE. CALL LIGHT IN REACH. WILL CONTINUE TO MONITOR
--- NOTE | 2018-02-27 04:00 | NUR ---
COWS/CIWA DEFERRED PATIENT IN BED WITH EYES CLOSED. RESPIRATION EVEN AND UNLABORED. VS REFUSED. SAFETY MEASURES IN PLACE. CALL LIGHT IN REACH. WILL CONTINUE TO MONITOR
--- NOTE | 2018-02-27 07:10 | NUR ---
END OF SHIFT NOTE PATIENT SLEPT 9 HOURS. FLUID INTAKE 942 ML. VOIDED X 2. BM X 2. MONITORED PATIENT THROUGHOUT SHIFT. SCHEDULED MEDICATION AND PATIENT IS ON PHENOBARBITAL/SUBUTEX TAPER, TOLERATED WELL AND NO ADVERSE REACTION. PATIENT PRESENTED WITH FLAT AFFECT, DISHEVELED, ANXIOUS, RESTLESS, HOT AND COLD SWEATS, ABDOMINAL CRAMPING, STUFFY NOSE, YAWNING AND FATIGUE BEGINNING OF SHIFT. PATIENT REQUESTED FOR SLEEP AID, PRN SEROQUEL GIVEN AT 2043. PATIENT C/O ANXIETY AND PRN VISTARIL GIVEN AT 2116. AT 2120, PATIENT HAD AN EPISODE OF DIARRHEA , PRN IMODIUM GIVEN. ENCOURAGED FLUIDS. NO EPISODE OF DIARRHEA AFTER IMODIUM. LAST COWS 8 AND CIWA 7. SAFETY MEASURES IN PLACE. CALL LIGHT IN REACH. WILL CONTINUE TO MONITOR.
--- NOTE | 2018-02-27 07:15 | NUR ---
START OF SHIFT: PATIENT IS A 22 YR OLD MALE ADMITTED TO [facility] ON 02/23/18 FOR A MEDICALLY SUPERVISED WITHDRAWAL FROM MULTIPLE SUBSTANCES. HE IS ON A PHENOBARBITAL/ SUBUTEX TAPER AND THIS IS DAY 4. PRN MEDS GIVEN ON PM SHIFT : SEROQUEL, VISTARIL AND IMODIUM. HE SLEPT FOR 9 HOURS AND LAST COWS 8 AND CIWA 7. WILL CONTINUE TO FOLLOW MD PLAN OF CARE.
[2018-02-27 08:01] VITALS: BP 120/70
[2018-02-27] MEDS: CEPHALEXIN MONOHYDRATE 500 MG CAPSULE PO SCH ×3 (09:07→21:27)
[2018-02-27] MEDS: VENLAFAXINE XR 75 MG CAP.SR.24H PO SCH (09:07)
[2018-02-27] MEDS: GABAPENTIN 300 MG CAPSULE PO SCH ×3 (09:07→21:26)
[2018-02-27] MEDS: BACLOFEN 10 MG TABLET PO SCH ×2 (09:07→21:27)
[2018-02-27] MEDS: PHENOBARBITAL 60 MG TABLET PO SCH ×2 (09:07→21:28)
[2018-02-27] MEDS: LACTOBACILLUS RHAMNOSUS GG 1 EACH CAPSULE PO SCH ×2 (09:08→21:24)
[2018-02-27] MEDS: CLONIDINE HCL 0.1 MG TABLET PO SCH ×3 (09:08→21:27)
[2018-02-27] MEDS: BUPRENORPHINE HCL 2 MG TAB.SUBL SL SCH ×2 (09:09→21:28)
[2018-02-27 12:00] VITALS: BP 115/88
--- NOTE | 2018-02-27 13:44 | NUR ---
Client was prompted to attend group therapy sessions and client agreed to do so.
--- NOTE | 2018-02-27 15:30 | NUR ---
PRN VISTARIL VISTARIL 25MG PO GIVEN FOR R/O ANXIETY. WILL REASSESS
[2018-02-27] MEDS: HYDROXYZINE PAMOATE 25 MG CAPSULE PO PRN ×2 (15:33→22:54)
[2018-02-27 16:53] VITALS: BP 124/80
--- NOTE | 2018-02-27 18:45 | NUR ---
END OF SHIFT: PATIENT IS A 22 YR OLD MALE ADMITTED TO [facility] ON 02/23/18 FOR A MEDICALLY SUPERVISED WITHDRAWAL FROM BENZODIAZEPINES, OPIATES AND METHAMPHETAMINES. HE IS ON A MODIFIED PHENOBARBITAL / SUBUTEX TAPER TOLERATED WELL. PRN MEDS GIVEN ON THIS SHIFT : VISTARIL FOR ANXIETY WHICH WAS EFFECTIVE. PATIENT HAS BEEN UPBEAT TODAY WITH A POSITIVE ATTITUDE TOWARDS HIS RECOVERY. HE TOOK A SHOWER TODAY AND IS MAKING AN EFFORT IN ADL'S AND ROOM TIDINESS. HE HAD A FLUID INTAKE OF 2750 ML, 4 VOIDS AND 1 BM. LAST COWS 9 AND CIWA 8 @ 1600. CONTINUE TO FOLLOW MD PLAN OF CARE. ENDORSED TO HANDTOOLS REPAIRER.
[2018-02-27 20:00] VITALS: BP 131/85
--- NOTE | 2018-02-27 20:00 | NUR ---
START OF SHIFT NOTE RECEIVED REPORT FROM DAY SHIFT NURSE. PATIENT IS A 22 YEAR OLD MALE ADMITTED FOR OPIATE/BENZO WITHDRAWAL. PATIENT IS ON PHENOBARBITAL AND SUBUTEX TAPER. PATIENT WAS GIVEN PRN VISTARIL. LAST COWS 9 AND CIWA 8. PATIENT PRESENTS WITH ANXIETY, RESTLESSNESS , IRRITABLE, RESTLESS LEGS, HOT AND COLD SWEATS, MUSCLE ACHES, AND YAWNING. NOTED GARBAGE IN ROOM AND CLOTHES THROWN ON FLOOR. CONTINUE TO ENCOURAGE FLUIDS. WILL CONTINUE TO MONITOR.
--- NOTE | 2018-02-27 21:34 | NUR ---
PRN VISTARIL AND SEROQUEL ADMINISTRATION PATIENT C/PO ANXIETY AND DIFFICULTY FALLING ASLEEP. WILL CONTINUE TO MONITOR
--- NOTE | 2018-02-27 22:34 | NUR ---
PRN VISTARIL/SEROQUEL RE-ASSESSMENT PATIENT IN BED WITH EYES CLOSED. RESPIRATION EVEN AND UNLABORED. SAFETY MEASURES IN PLACE. WILL CONTINUE TO MONITOR
[2018-02-27] MEDS: QUETIAPINE FUMARATE 25 MG TABLET PO PRN (22:54)
--- NOTE | 2018-02-28 | NUR ---
COWS AND CIWA DEFERRED PATIENT SLEEPING. RESPIRATION EVEN AND UNLABORED. VS REFUSED. SAFETY MEASURES IN PLACE. CALL LIGHT IN REACH. WILL CONTINUE TO MONITOR
--- NOTE | 2018-02-28 04:00 | NUR ---
COWS AND CIWA DEFERRED PATIENT SLEEPING. RESPIRATION EVEN AND UNLABORED. VS REFUSED. SAFETY MEASURES IN PLACE. CALL LIGHT IN REACH. WILL CONTINUE TO MONITOR
--- NOTE | 2018-02-28 07:22 | NUR ---
END OF SHIFT NOTE PATIENT SLEPT 6 HOURS. FLUID INTAKE 1,420 ML. VOIDED X 3 . NO BM. MONITOR PATIENT THROUGHOUT SHIFT. PATIENT CONTINUE ON PHENOBARBITAL AND SUBUTEX TAPER, TOLERATED WELL AND NO ADVERSE REACTION. PATIENT COMPLIANT WITH MEDICATIONS AND TREATMENT PLAN. PATIENT PRESENTED WITH ANXIETY, RESTLESSNESS , IRRITABLE, RESTLESS LEGS, HOT AND COLD SWEATS, MUSCLE ACHES, AND YAWNING. BEGINNING OF SHIFT. PRN VISTARIL AND SEROQUEL GIVEN . LAST COWS 8 AND CIWA 6. WILL CONTINUE TO MONITOR.
--- NOTE | 2018-02-28 07:50 | NUR ---
START OF SHIFT: PATIENT IS A 22YR OLD MALE ADMITTED TO [facility] ON 02/23/18 FOR A MEDICALLY SUPERVISED WITHDRAWAL FROM BENZODIAZEPINES, OPIATES, AND METHAMPHETAMINES. THIS IS HIS LAST DAY OF A MODIFIED PHENOBARBITAL/SUBUTEX TAPER WHICH HAS BEEN WELL TOLERATED. PRN MEDICATION GIVEN ON PM SHIFT: SEROQUEL AND VISTARIL, HE SLEPT FOR 6+ HOURS AND LAST COWS 8 AND CIWA 6. PATIENT IS ASLEEP IN BED AT THIS TIME, BREATHING EVEN AND UNLABORED, SIDE RAILS UP X2. CONTINUE TO FOLLOW MD PLAN OF CARE.
[2018-02-28 08:00] VITALS: BP 107/71
[2018-02-28] MEDS ORDERED: BUPRENORPHINE HCL 2 MG TAB.SUBL SL SCH (09:00)
[2018-02-28] MEDS ORDERED: PHENOBARBITAL 60 MG TABLET PO SCH (09:00)
[2018-02-28] MEDS: LACTOBACILLUS RHAMNOSUS GG 1 EACH CAPSULE PO SCH (09:12)
[2018-02-28] MEDS: GABAPENTIN 300 MG CAPSULE PO SCH ×3 (09:12→20:26)
[2018-02-28] MEDS: VENLAFAXINE XR 75 MG CAP.SR.24H PO SCH (09:12)
[2018-02-28] MEDS: BACLOFEN 10 MG TABLET PO SCH ×2 (09:12→20:26)
[2018-02-28] MEDS: CEPHALEXIN MONOHYDRATE 500 MG CAPSULE PO SCH ×2 (09:12→15:04)
[2018-02-28] MEDS: CLONIDINE HCL 0.1 MG TABLET PO SCH ×3 (09:13→20:25)
[2018-02-28 12:00] VITALS: BP 130/83
[2018-02-28 16:00] VITALS: BP 118/73
--- NOTE | 2018-02-28 16:43 | NUR ---
Client was prompted to attend daily group sessions. Client related that he would attend the next group.
--- NOTE | 2018-02-28 18:58 | NUR ---
END OF SHIFT : PATIENT IS A 22 YR OLD MALE ADMITTED TO [facility] ON 02/23/18 FOR A MEDICALLY SUPERVISED WITHDRAWAL. PATIENT HAS COMPLETED HIS PHENOBARBITAL / SUBUTEX TAPER AND IS TO BE DISCHARGED TOMORROW TO " [facility]". PATIENT HAS BEEN COMPLIANT AND ATTENDED ALL GROUPS/THERAPY TODAY. NO PRN MEDS WERE REQUIRED OR REQUESTED, HE HAD A FLUID INTAKE OF 1500, 3 VOIDS AND 0 BM. LAST COWS 6 AND CIWA 4 @ 1600. CONTINUE TO FOLLOW MD PLAN OF CARE. ENDORSED TO IMMIGRATION PATROL INSPECTOR.
[2018-02-28 20:00] VITALS: BP 118/78
--- NOTE | 2018-02-28 20:00 | NUR ---
START OF SHIFT NOTE RECEIVED REPORT FROM DAY SHIFT NURSE. PATIENT IS A 22 YEAR OLD MALE FOR OPIATE/BENZO WITHDRAWAL.PATIENT COMPLETED PHENOBARBITAL AND SUBUTEX TAPER. PATIENT IS MEDICALLY CLEARED TO BE DISCHARGE TOMORROW. PATIENT DID NOT REQUIRE PRN MEDICATION. LAST COWS 6 AND CIWA 4. PATIENT PRESENTS WITH ANXIETY, RESTLESSNESS , RESTLESS LEGS, SWEATS AND INSOMNIA . GARBAGE AROUND ROOM , CLOTHES THROWN ON FLOOR AND DIRTY LINENS, REFUSED CHANGE. SAFETY MEASURES IN PLACE. CALL LIGHT IN REACH . WILL CONTINUE TO MONITOR.
[2018-02-28] MEDS: HYDROXYZINE PAMOATE 25 MG CAPSULE PO PRN (20:26)
[2018-02-28] MEDS: QUETIAPINE FUMARATE 25 MG TABLET PO PRN (20:26)
--- NOTE | 2018-02-28 20:26 | NUR ---
PRN SEROQUEL AND VISTARIL ADMINISTRATION PATIENT C/O ANXIETY AND REQUESTS FOR SLEEP AID. WILL MONITOR FOR EFFECTIVENESS
--- NOTE | 2018-02-28 21:26 | NUR ---
PRN VISTARIL RE-ASSESSMENT PATIENT IS LESS ANXIOUS. HE STATES VISTARIL IS HELPFUL AND EFFECTIVE. WILL CONTINUE TO MONITOR.
[2018-02-28] MEDS ORDERED: QUET25TA PO (21:46)
[2018-02-28] MEDS ORDERED: NICO4GUM38 BC (21:46)
[2018-02-28] MEDS ORDERED: CLON0.1T14 PO (21:46)
[2018-02-28] MEDS ORDERED: VENL75CA56 PO (21:46)
[2018-02-28] MEDS ORDERED: BACL10TA PO (21:46)
[2018-02-28] MEDS ORDERED: HYDR-3895 PO (21:46)
[2018-02-28] MEDS ORDERED: GABA-534 PO (21:46)
--- NOTE | 2018-02-28 22:00 | NUR ---
PRN SEROQUEL RE-ASSESSMENT PATIENT IN BED WITH EYES CLOSED. RESPIRATION EVEN AND UNLABORED. WILL CONTINUE TO MONITOR
--- NOTE | 2018-03-01 | NUR ---
COWS AND CIWA DEFERRED PATIENT SLEEPING. RESPIRATION EVEN AND UNLABORED. VS REFUSED. WILL CONTINUE TO MONITOR
--- NOTE | 2018-03-01 04:00 | NUR ---
COWS AND CIWA DEFERRED PATIENT SLEEPING. RESPIRATION EVEN AND UNLABORED. VS REFUSED. WILL CONTINUE TO MONITOR
--- NOTE | 2018-03-01 06:48 | NUR ---
END OF SHIFT NOTE PATIENT SLEPT 8 HOURS. FLUID INTAKE 1,160 ML. VOIDED X 1 . NO BM. MONITORED PATIENT THROUGHOUT SHIFT. PATIENT COMPLETED PHENOBARBITAL AND SUBUTEX TAPER, TOLERATED WELL AND NO ADVERSE REACTION . PATIENT IS DISCHARGING TODAY. PATIENT WAS GIVEN PRN SEROQUEL FOR SLEEP AND VISTARIL FOR ANXIETY, EFFECTIVE. PATIENT COMPLIANT WITH MEDICATION AND TREATMENT PLAN. SAFETY MEASURES IN PLACE. CALL LIGHT IN REACH . WILL CONTINUE TO MONITOR. LAST COWS 6 AND CIWA 5.
--- NOTE | 2018-03-01 07:13 | NUR ---
START OF SHIFT NOTE: Received report from hourly shift manager nurse. Pt is a 22 year old male admitted to [facility] on 02/23/18 for medical management of Benzodiazepine, Opiate and methamphetamine withdrawals. Pt to be discharged this AM. Pt is alert and oriented X4. Color good, skin warm and dry. Respirations even and unlabored. shift leader reported pt slept 8 hours. Last Cows 6 and CIWA 5. Received prn Benadryl and Vistaril. Pt in good spirits. Safety precautions observed. Call light within reach.
[2018-03-01 08:00] VITALS: BP 129/76
[2018-03-01] MEDS: VENLAFAXINE XR 75 MG CAP.SR.24H PO SCH (08:25)
[2018-03-01 08:26] VITALS: BP 129/74
[2018-03-01] MEDS: GABAPENTIN 300 MG CAPSULE PO SCH (08:26)
[2018-03-01] MEDS: CLONIDINE HCL 0.1 MG TABLET PO SCH (08:26)
[2018-03-01] MEDS: BACLOFEN 10 MG TABLET PO SCH (08:26)
--- NOTE | 2018-03-01 08:33 | NUR ---
Discharge papers signed. No home meds. Pt states "I feel good."
--- NOTE | 2018-03-01 09:30 | NUR ---
Pt discharged in stable condition with all vauables and belongings. No home meds. Denies SI/HI. To [facility] via [facility]
== END 2018-03-01 09:30 | DRG 895 ==
LOC: SRC 16:38
PROVIDERS: ADMIT Internal Medicine; ATTEND Internal Medicine
PROC: HZ2ZZZZ Detoxification Services for Substance Abuse Treatment (ICD-10-PCS; principal; 2018-02-23)
PROC: HZ41ZZZ Group Counseling for Substance Abuse Treatment, Behavioral (ICD-10-PCS; 2018-02-24)
DX: F13.232 Sedative, hypnotic or anxiolytic dependence with withdrawal with perceptual disturbance (principal); Z86.74 Personal history of sudden cardiac arrest; F33.2 Major depressive disorder, recurrent severe without psychotic features; I15.9 Secondary hypertension, unspecified; F15.20 Other stimulant dependence, uncomplicated; L03.114 Cellulitis of left upper limb; L03.113 Cellulitis of right upper limb; F11.23 Opioid dependence with withdrawal; F10.11 Alcohol abuse, in remission; Y90.0 Blood alcohol level of less than 20 mg/100 ml; Z91.5 Personal history of self-harm; Z91.89 Other specified personal risk factors, not elsewhere classified; Z81.3 Family history of other psychoactive substance abuse and dependence; F17.210 Nicotine dependence, cigarettes, uncomplicated; Z81.1 Family history of alcohol abuse and dependence; S51.032S Puncture wound without foreign body of left elbow, sequela; S51.031S Puncture wound without foreign body of right elbow, sequela; X78.8XXS Intentional self-harm by other sharp object, sequela; F14.10 Cocaine abuse, uncomplicated; Z79.899 Other long term (current) drug therapy; F41.9 Anxiety disorder, unspecified; R74.0 Nonspecific elevation of levels of transaminase and lactic acid dehydrogenase [LDH]
CPT/HCPCS: 36415; 70030-TC; 80307; 80345; 80346; 80349; 80361; 83735; 85025; 86592; 86705; 86803; 87040; 87340; 87806; A4663; G0480; J8499; Q0163

== ENCOUNTER 2018-05-18 14:07 | Inpatient (IN) | payer BC, OTHER ==
[~2018-05-18] VITALS: Ht 182.9 cm; Wt 72.6 kg
[~2018-05-18 14:07] MED LIST: BACL10TA PO; CLON0.1T14 PO; GABA-534 PO; HYDR-3895 PO; NICO4GUM38 BC; QUET25TA PO; VENL75CA56 PO
--- NOTE | 2018-05-20 18:45 | NUR ---
Pre-admission assessment Pt is a 22 y/o male, seen at intake, oriented to year, place and name. He is not oriented to month or time. Pt is drowsy, moderately intoxicated, has slurred and delayed speech, difficulty concentrating, nods head during questioning. Pt is disheveled, unshaven, dirty fingernails, toes, odorous. Pt fractured left ankle 4 days ago. He has cast/splint wrapped with nuvia wrap. Capillary refill 3-4 seconds. Toes warm and dry. Left foot red and mild swelling. Pt poor historian r/t intoxication. Vital signs; 127/65, HR 120, resp 16, O2 sat 97%, temp 97.8. 1.Pt reports he took 4 tablets of Ward today. He reports taking 5-10 Ward pills daily for one week. 2.Pt reports he uses heroin gram by IV for 2 weeks. He last used heroin yesterday. 3.Pt reports he used Meth 1 gram daily for 2 weeks. Pt reports he has not slept in 2 days. 4.P reports using cocaine unknown quantity for last 2 weeks. Last used yesterday. 5.Pt reports ETOH use 2 months ago. Pt reports his typical withdrawal symptoms include anxiety, stomach cramps and insomnia. He was last admitted to rehab at [facility] in [place] 2 weeks ago. He was admitted to a rehab in [place] 2015. Pt doesnt recall the name. Pt reports history of withdrawal induced seizures and delirium 3 years ago r/t ETOH detox. Pt reports overdose 3 years ago with heroin, he was hospitalized, does not remember name of hospital. Pt reports he has had blackouts r/t ETOH use. PMH- Pt had difficulty remembering his diagnoses. Pt reports insomnia and left fractured foot. Pt reports he does not have PCP and psychiatrist. Pt could not recall who his prescribing physician is for Gabapentin, Seroquel, and Effexor.
[2018-05-20] MEDS ORDERED: BUSP10TA3 PO (18:56)
[2018-05-20] MEDS ORDERED: QUET100T PO (19:02)
[2018-05-20] MEDS ORDERED: VALA100026 PO (19:03)
--- NOTE | 2018-05-20 19:30 | NUR ---
Start of Shift Pt escorted onto [facility] at 1852 for medically managed withdrawal from Heroin, [place], Methamphetamine salts and Cocaine salts. Pt information available claims NKA's. Pt currently severely intoxicated and sleeping, arousable to voice repeatedly and tactile stimulation. Pt unable to respond to questions or requests/commands at this time. VS's, BP 110/62, HR 105, RR 16, SaO2 99% on RA. CN informed of pt hx per intake assessment and prior admission, to contact MD for further orders. Full safety measures in place, with bed locked and in lowest position, side rails x 2 up and call johnson within reach with frequent rounding. Will continue to monitor for duration of shift, promptly attending to all s/sx's distress or w/d.
[2018-05-20 20:00] VITALS: BP 110/62
[2018-05-20] MEDS ORDERED: diphenhydrAMINE 50 MG CAPSULE PO PRN (22:00)
[2018-05-20] MEDS ORDERED: ONDANSETRON 4 MG/2 ML VIAL IM PRN (22:00)
[2018-05-20] MEDS ORDERED: MIRALAX 17 GM POWD.PACK PO PRN (22:00)
[2018-05-20] MEDS ORDERED: DICYCLOMINE HCL 20 MG TABLET PO PRN (22:00)
[2018-05-20] MEDS ORDERED: MAG HYDROX/AL HYDROX/SIMETH 30 ML LIQUID UDC PO PRN (22:00)
[2018-05-20] MEDS ORDERED: CLONIDINE HCL 0.1 MG TABLET PO PRN (22:00)
[2018-05-20] MEDS ORDERED: LOPERAMIDE HCL 2 MG CAPSULE PO PRN ×2 (22:00)
[2018-05-20] MEDS ORDERED: BUPRENORPHINE HCL 2 MG TAB.SUBL SL PRN (22:00)
[2018-05-20] MEDS ORDERED: ACETAMINOPHEN 325 MG TABLET PO PRN (22:00)
[2018-05-20] MEDS ORDERED: MAGNESIUM HYDROXIDE 30 ML LIQUID UDC PO PRN (22:00)
[2018-05-20] MEDS ORDERED: ONDANSETRON ODT 4 MG TAB.RAPDIS SL PRN (22:00)
[2018-05-20] MEDS ORDERED: LORAZEPAM 2 MG/1 ML VIAL IM PRN (22:15)
[2018-05-21] VITALS: BP 134/98
--- NOTE | 2018-05-21 | NUR ---
Midnight Rounds VS's obtained, BP 134/98, HR 112. COWS deferred r/t pt intoxication. Pt awake, oriented x 3, experienceing tremors, but reports to still be high. Will continue to monitor
[2018-05-21 01:29] LABS: BASOPHILS % (AUTO) 0.4 % (0.0-2.0); EOSINOPHILS # (AUTO) 0.3 K/uL (0.0-0.7); HEMATOCRIT 42.8 % (36.7-47.1); HEMOGLOBIN 14.4 g/dL (12.5-16.3); LYMPHOCYTES % (AUTO) 29.4 % (20.5-51.5); MEAN CORPUSCULAR HEMOGLOBIN 29.8 uug (23.8-33.4); MEAN CORPUSCULAR HGB CONC 34 g/dL (32.5-36.3); MEAN CORPUSCULAR VOLUME 88.3 fL (73.0-96.2); MONOCYTES # (AUTO) 0.7 K/uL (2.0-10.0); MONOCYTES % (AUTO) 10.9 % (0.0-11.0); NEUTROPHILS # (AUTO) 3.8 K/uL (1.8-8.9); NEUTROPHILS % (AUTO) 55.3 % (38.5-71.5); PLATELET COUNT (AUTO) 194 K/uL (152-348); RED BLOOD CELL COUNT(AUTO) 4.85 MIL/uL (4.06-5.63); WHITE BLOOD COUNT (AUTO) 6.9 K/uL (3.6-10.2)
[2018-05-21] MEDS: IBUPROFEN 600 MG TABLET PO PRN ×2 (01:29→20:32)
[2018-05-21 01:41] LABS: ALANINE AMINOTRANSFERASE 93 U/L (16-63); ALKALINE PHOSPHATASE 57 U/L (50-136); AMYLASE 44 U/L (25-115); ASPARTATE AMINOTRANSFERASE 152 U/L (15-37); BILIRUBIN,TOTAL 0.5 mg/dL (0.2-1.0); CARBON DIOXIDE 26 mmol/L (21-32); CHLORIDE 102 mmol/L (98-107); CREATININE 0.9 mg/dL (0.6-1.3); GLUCOSE 99 mg/dL (74-106); LIPASE 189 U/L (73-393); MAGNESIUM 2.4 mg/dL (1.8-2.4); POTASSIUM 3.4 mmol/L (3.5-5.1); UREA NITROGEN, BLOOD 14 mg/dL (7-18)
[2018-05-21 01:53] LABS: THYROID STIMULATING HORMONE 2.341 mIU/mL (0.358-3.740)
[2018-05-21 02:28] LABS: *AMPHETAMINE, URINE POSITIVE (NEGATIVE); *BARBITURATE, URINE NEGATIVE (NEGATIVE); *CANNABINOID, URINE POSITIVE (NEGATIVE); *COCCAINE, URINE NEGATIVE (NEGATIVE); *OPIATE, URINE POSITIVE (NEGATIVE); *PHENCYCLIDINE SCREEN,URINE NEGATIVE (NEGATIVE)
[2018-05-21 02:31] LABS: ETHANOL < 3 MG/DL (0-0)
[2018-05-21 04:00] VITALS: BP 113/64
--- NOTE | 2018-05-21 04:00 | NUR ---
Morning Rounds VS's obtained and stable. COWS 7, amb anxiety and restlessness, depression, pupil dilation. anhedonia, chills/diaphoresis, difficulty concentrating, dysphoria, emotional volatility, fatigue/malaise, flushed face, pain (left foot).
[2018-05-21] MEDS ORDERED: KETOROLAC TROMETHAMINE 30 MG INJ IM ONE (05:30)
--- NOTE | 2018-05-21 05:34 | NUR ---
PRN Med Toradol 30mg IM to l deltoid given for left foot pain 6/10. Will continue to monitor and reassess in 1 hour.
[2018-05-21] MEDS: NICOTINE POLACRILEX 4 MG GUM-PK OF TEN BC PRN ×2 (05:39→20:32)
--- NOTE | 2018-05-21 05:39 | NUR ---
PRN Med Nicorette nicotine gum 4mg PO given for nicotine withdrawal. Will continue to monitor and reassess in 1 hour.
--- NOTE | 2018-05-21 05:52 | NUR ---
Admission Note Pt is a 22 y/o male being admitted to [facility] for medically manage withdrawal from Heroin and [place]. Pt also uses Methamphetamine and Cocaine salts. Pt entered unit on 05/20/18 at 1852 and was examined, skin found to be intact, no contraband noted. Pt height of 6'0", weight 160 lbs per patient. Pt oriented to unit and to pt's room 304. Pt listed as a full code with NKA's, and on a regular diet. Pt presents as severely intoxicated, admission deferred until morning hours after pt has obtained some rest, interview occurring in 2 parts with prior admission MD notes assisting in. Pt presenting with flat affect, slumped posture, dirty disheveled hair/uncombed, unshaven, unwashed clothing, dirty fingernails, appearing older than stated age. Odor from patient and breath/poor dental hygiene, slurred and delayed speech and sleepy. Pt with cast on left foot from injury on or about 05/16/18, hospitalization at [facility]. Bilateral hands with cuts and scrapes incurred same time. Pt is a poor historian, changing answers, but states PMH as bilateral Shoulder SX with hardware, and PPH as Anxiety, Depression, and Insomnia (Seroquel/Gabapentin), SA at age 13 (attempted O/D on Heroin) with [facility]. Pt denies SI/HI currently. Pt smokes approximately 1 PPD cigarettes. Pt's home meds consist of: Valacyclovir, 1000mg PO Seroquel, 50/100mg PO Gabepentin 1000mg PO Effexor 75mg PO Buspirone Gabapentin 600mg Baclofen 20mg PO Hydroxizine Pt questioned about use of each med, claims he doesnt' know what they are for. Pt reports this as his 4th admission into a detox/rehab facility, having been admitted here in January. Pt is able to recall some other facilities. Prior notes list [facility] from 4 years ago, an unknown in [place], [place] 2 years ago, and 2 weeks ago at [facility] in [place]. There is no PCP or psychiatrist/psychologist, pt lists family and 2 "sponsors" as primary support group. Past notes list s/sx's of withdrawal as: Tactile disturbances, paresthesias, auditory disturbances, disorientation, palpitations, restlessness, arthralgias, myalgias, generalized pain, nasal congestion, piloerection, dyspepsia, abdominal cramping, agitation, irritabilty anxiety, anhedonia, chills, clammy skin, depression, difficulty concentrating, diarrhea, diaphoresis, emotional volatility, fatigue, tremors, flushed face, H/A's, eyelid movement, nausea, panic feeling, restless legs, runny nose, vomiting and yawning. Pt also reports a Hx of: SeizureETOH induced3.5 years agono med tx W/D induced DelirumMeth inducedno med tx OverdoseHeroin induced3 years agoMed tx BlackoutsETOH induced Pt's current use has been as follows: Heroin .5-1g/day IVfor 2 weekslast used g IVfirst used at age 13 Norco5-10 pills dailyfor 1 weeklast used -4 pillsfirst used at age 21 Meth1g/day IVfor 2 weekslast used 05/18/18irst used at age 16 Cocainelast used 2 months ago Pt is currently unable to concentrate or articulate any answers pertaining to use or desire to get sober, except for "My life is not working" when asked why they want to get sober. Addendum: pt at 0430 able to articulate internal motivator as "to get better, I dunno, I mean to fix my life. I don't want to be a junkie sitting on the street". He is also able to say this admission is different from others because "I just need it to work. I need to get better or I'm going to " and the reason he came into treatment today was "cause I really need help". Orders and medications have been placed and acknowledged, U/A obtained and blood drawn and sent to lab, home medications reconciled. Full safty measures instituted with bed locked and in lowest position, siderails up x 2, call johnson within reach and frequent rounding. Will continue to monitor pt until endorsement given to day nurse, promply attending to all s/sx's of w/d or distress.
--- NOTE | 2018-05-21 06:34 | NUR ---
PRN Reassessment Toradol 30mg IM given 1 hour prior for left foot pain 03/12. At present pt is resting with eyes closed, RR 14, even and nonlabored. Med effective.
--- NOTE | 2018-05-21 06:39 | NUR ---
PRN Reassessment Nicorette nicotine gum 4mg PO given 1 hour prior for nicotine w/d. At present pt is resting with eyes closed, RR 14, even and nonlabored. Med effective.
--- NOTE | 2018-05-21 07:38 | NUR ---
End of Shift Endorsement given to day nurse. Pt escorted onto [facility] at 1852 for medically managed withdrawal from Heroin and [place]. Pt also uses Methamphetamine salts and Cocaine salts. Pt information available claims NKA's. Admission performed over evening, pt very sleeping with intermittent periods of wakefullness. Pt COWS 7 at 0400, marked by irritability, anxiety, restlessness, l foot pain, fatigue, depression anhedonia. Toxicology returned and positive for Marijuana and Benzodiazapines. Pt odorous with unwashed clothing, uncombed hair, poor dental hygiene appearing older that stated age, flat affect and emotionally volatile at times. PRN's for shift included Motrin, Toradol and Nicorette gum. Pt slept for 9 hours with 600 mls intake and 1 void. U/A, MRSA swab and labs obtained and sent to lab. Full safety measures in place, with bed locked and in lowest position, side rails x 2 up and call johnson within reach with frequent rounding. Will continue to monitor for duration of shift, promptly attending to all s/sx's distress or w/d.
--- NOTE | 2018-05-21 07:45 | NUR ---
Start of Shift Pt is 22 y/o male admitted for medically supervised withdrawal of Opiates. His toxicology screen also noted benzos. Pt reports also using meth, cocaine, and marijuana too. Last COWS 0400. Pt will start 3 day Subutex Taper this morning. Pt A&O x4. Pt presents anxiety, agitation, fatigue, dysphoria, anhedonia, depressed mood, flat affect, flushed, unshaven, odorous, dirty finger nails and disheveled. Pt c/o left foot pain #7/10. His foot is elevated in bed with cast wrapped in an nuvia bandage. Toes warm, pink, and capillary refill 3-4 seconds. Pt encouraged to participate in group activities, socialize with others and identify positive coping skills to maintain sobriety. All safety measures in place; Bed in lowest position. Side rails up x2. Call light functioning and within reach. All needs attended and met. Will continue to assess for withdrawal symptoms. Addendum: 05/21/18 at 1034 by Preethi Aburto RN Left ankle swollen, bruised, red/pink, purple.
[2018-05-21 08:00] VITALS: BP 129/77
--- NOTE | 2018-05-21 08:10 | NUR ---
COWS 13- Pt presents moderate anxiety, sweats, agitation, fatigue, generalized body aches,dysphoria, anhedonia, depressed mood, flat affect, flushed, unshaven, odorous, dirty finger nails and disheveled. will administer Subutex 4 mg po per MD ordered taper
[2018-05-21] MEDS: busPIRone 10 MG TABLET PO SCH ×3 (08:59→17:06)
[2018-05-21] MEDS: GABAPENTIN 300 MG CAPSULE PO SCH ×3 (08:59→20:32)
[2018-05-21] MEDS: BACLOFEN 10 MG TABLET PO SCH ×2 (08:59→20:32)
[2018-05-21] MEDS: VALACYCLOVIR HCL 500 MG TABLET PO SCH (08:59)
[2018-05-21] MEDS: METHOCARBAMOL 750 MG TABLET PO PRN (08:59)
[2018-05-21] MEDS: MULTIVITAMINS,THERAPEUTIC TABLET PO SCH (08:59)
[2018-05-21] MEDS: VENLAFAXINE XR 75 MG CAP.SR.24H PO SCH (08:59)
[2018-05-21] MEDS ORDERED: 3 DAY TAPER BUPRENORPHINE -SERENITY PROTOCOL SL PRN (09:00)
[2018-05-21] MEDS: BUPRENORPHINE HCL 2 MG TAB.SUBL SL SCH ×2 (09:00→20:33)
[2018-05-21] MEDS ORDERED: TUBERCULIN,PURIF.PROT.DERIV. 5 TU/0.1 ML TEST ID ONE (09:00)
--- NOTE | 2018-05-21 09:03 | NUR ---
PRN- Tylenol 650 mg PO for left ankle/foot/heel pain r/t fracture #7/1PRN Robaxin 750 mg PO for generalized body aches
[2018-05-21] MEDS ORDERED: 3 DAY TAPER OF LORAZEPAM -SERENITY PROTOCOL PO PRN (09:45)
--- NOTE | 2018-05-21 10:00 | NUR ---
Reassess Tylenol- Pt states left heel pain remains at #7/10, medication not effective. Reassess Robaxin- Pt reports body aches improved.
[2018-05-21] MEDS: LORAZEPAM 1 MG TABLET PO SCH ×4 (10:19→20:33)
[2018-05-21] MEDS: KETOROLAC TROMETHAMINE 30 MG INJ IM PRN (10:20)
--- NOTE | 2018-05-21 10:20 | NUR ---
PRN Toradol 30 mg IM left deltoid for left heel pain #7/10. Dr. Lowry authorized to give Toradol early since last does was at 5:30 am.
--- NOTE | 2018-05-21 10:22 | NUR ---
MATT Narayan Dr. ordered 3 day Ativan taper for recently benzo use. Pt presents with moderate anxiety, agitation, sweats, malaise, and pain. Administered 1 mg Ativan PO per taper order
--- NOTE | 2018-05-21 11:10 | NUR ---
Ortho Communication: Received telephone order from Dr. Hobbs for x-ray on left foot to evaluate fx. Order noted and carried out.
--- NOTE | 2018-05-21 11:20 | NUR ---
Reassess Toradol- pt reports left heel pain now #4/10. medication effective.
[2018-05-21 12:00] VITALS: BP 128/78
--- NOTE | 2018-05-21 12:01 | NUR ---
History clarification note- Spoke to patient about his positive benzodiazepine blood test result and his history of use. Pt admitted to taking Xanax 6-10 mg (2mg tablets) daily for one month. He was not prescribed Xanax by a physician but purchased on the street. Pt reported a previous treatment center allowed him to take Xanax. He doesn't recall the name of center.
--- NOTE | 2018-05-21 12:10 | NUR ---
COWS 13/ CIWA 11- Pt presents with moderate anxiety, irritability, sweats, generalized body aches, fatigue, fine tremors, sensitivity to light, and left heel pain. Will administer Ativan and Subutex as order for taper protocol.
--- NOTE | 2018-05-21 12:30 | NUR ---
X-ray Refused: Pt refused x-ray of left foot. Pt stated that he already had his foot x-rayed twice and requested to get his medical records from [facility]. made aware. Will request medical records.
[2018-05-21] MEDS ORDERED: NICOTINE POLACRILEX 4 MG GUM-PK OF TEN BC PRN (12:45)
--- NOTE | 2018-05-21 12:50 | NUR ---
Potassium 3.4, administer KDur 20 meq as ordered by
[2018-05-21] MEDS ORDERED: POTASSIUM CHLORIDE 20 MEQ TAB.PRT.SR PO ONE (13:00)
[2018-05-21] MEDS ORDERED: GABAPENTIN 300 MG CAPSULE PO SCH (13:00)
--- NOTE | 2018-05-21 13:08 | NUR ---
Pt refused left heel X-Ray. He states "I've had two X-rays already. My Dad is an orthopaedic surgeon in [place]. He may refer a local ortho doctor for me". Pt also told nurse [place] [facility] [place]. Pt did agree to an Orthopaedic consult while at [facility]. Dr. Lowry notified of Pt's refusal of X-ray and he agrees to a ortho consult.
--- NOTE | 2018-05-21 13:14 | NUR ---
Therapist prompted client to attend group therapy sessions twice daily.
--- NOTE | 2018-05-21 13:30 | NUR ---
Request of medical records: Contacted [facility] for results from left foot x-ray. Awaiting fax to be relayed to ortho consult and MD.
--- NOTE | 2018-05-21 14:00 | NUR ---
Ortho Communication: Ortho made aware of x-ray results from [place]. Order to keep non-weight bearing on left foot and to contact Ortho after discharge.
[2018-05-21 16:00] VITALS: BP 112/72
--- NOTE | 2018-05-21 16:10 | NUR ---
COWS 13/ CIWA 11- Pt continues with anxiety, sweats, fatigue, fine tremors, sensitivity to light, and body aches. Administered Ativan and Subutex as order for taper protocol.
--- NOTE | 2018-05-21 18:46 | NUR ---
End of Shift Last COWS 13, CIWA 11 at 1600. Pt started 3 day Subutex and 3 day Ativan Taper this morning. Pt presents delayed speech, anxiety, agitation, fatigue, dysphoria, anhedonia, depressed mood, flat affect, flushed, unshaven, odorous, dirty finger nails and disheveled. Pt c/o left heel pain r/t fracture. PRN Toradol effective for the pain. K+ 3.4, administered one time dose of KDur 20 meq. Pt refused left heel X-ray but agreed to orthopaedic consult. PRNs given today; Tylenol, Robaxin and Toradol. Pt encouraged to participate in group activities, socialize with others and identify positive coping skills to maintain sobriety. Pt did attend one group therapy sessions today. PO fluids 1700ml, voids X1, BM X1. All safety measures in place; Bed in lowest position. Side rails up x2. Call light functioning and within reach. All needs attended and met. Will continue to assess for withdrawal symptoms. Endorsed to PM shift.
--- NOTE | 2018-05-21 19:15 | NUR ---
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 Patient also reports use of Meth, Cocaine & Marijuana. Patient is alert & oriented x3. He is disheveled, unshaved, unkempt, malodorous with dirty fingernails noted. Room observed to be cluttered with scattered clothes all over the floor and empty food and bottles all over table. He presented with a flushed face, sweating, chills, restlessness, 6/10 generalized body aches, stuffy nose, nausea, anxiety, & fine tremors. He denies hallucinations at this time. Respiration even & unlabored. Abdomen soft & non-distended. He is on day day #1 of his 3-day Ativan & 3-day Subutex taper. Last COWS 13 CIWA 11. Pt received PRN Tylenol, Robaxin, & Toradol during day shift. Educated patient current plan of care for the night and medication regimen including frequent rounding and vitals signs check every 4 hours. Pt verbalized understanding. Fall & seizure precautions observed. Bed locked in lowest position, both side rails up for safety and call light within pts reach. Will continue to monitor patient.
[2018-05-21 20:00] VITALS: BP 152/89
--- NOTE | 2018-05-21 20:00 | NUR ---
SIDERAILS REFUSED Pt refused to raise both side rails. Explained to patient risks and benfits of siderails and importance of siderails for safety but still refused. Will continue to monitor patient.
--- NOTE | 2018-05-21 20:00 | NUR ---
COWS/CIWA assessment Pt noted with a flushed face, sweating, chills, stuffy nose, restlessness, 6/10 generalized body aches, stuffy nose, nausea, anxiety, & fine tremors. He denies hallucinations at this time. Respiration even & unlabored. Abdomen soft & non-distended. COWS 15 CIWA 16.
--- NOTE | 2018-05-21 20:30 | NUR ---
Pt has a fracture on his left heel. He uses a wheelchair/crutch to ambulate. Pt's left foot has a splint in place and its wrapped with nuvia bandage. Explained to patient not to walk on his foot, and importance of elevating it above heart level. Pt verbalized understanding. Provided ice pack to place on left foot to help with the swelling. Will continue to monitor patient.
--- NOTE | 2018-05-21 20:32 | NUR ---
PRN Administration Patient complained of nausea, 610 pain on his left foot, & myalgia. Pt also requesting for Nictone gum. PRN Nicotine gum, Zofran & Motrin administered as ordered. Will monitor for effectiveness of medication.
[2018-05-21] MEDS ORDERED: BACLOFEN 10 MG TABLET PO SCH (21:00)
[2018-05-21] MEDS ORDERED: QUETIAPINE FUMARATE 100 MG TABLET PO SCH (21:00)
--- NOTE | 2018-05-21 21:32 | NUR ---
PRN Reassessment Patient reported improved nausea and left foot pain noted to decrease from 6/10 to 3/10 after PRN medications. Pt now appears calm sitting in his wheelchair with no facial grimacing noted. Will continue to monitor patient.
--- NOTE | 2018-05-22 | NUR ---
Vitals/COWS/CIWA deferred Patient refused vitals at this time. Pt in bed with eyes close. Respiration even & unlabored. No facial grimacing noted. Unable to assess COWS and CIWA scores at this time. Will reassess when pt awake. Will continue to monitor patient.
[2018-05-22 04:00] VITALS: BP 128/76
--- NOTE | 2018-05-22 07:00 | NUR ---
End of Shift Note: Patient is alert & oriented x3. He presented with withdrawal symptoms such as flushing, sweating, chills, stuffy nose, restlessness, myalgia, stuffy nose, nausea, anxiety, agitation & fine tremors. Pt continues on his 3-day Ativan and 3-day Subutex taper and tolerating well. Last COWS 15 CIWA 16. Pt reported that medication is effective in decreasing symptoms of withdrawal. Pt also received PRN Nicotine gum, Zofran & Motrin and were effective. Encourage pt to increase fluid intake for hydration. Educated pt importance of keeping left foot elevated and ice compress to decrease swelling. Patient is stable and vitals WNL. Pt slept for a total of 6 hours. Fluid intake:1355ml, Voided 1x with no BM noted. All due meds given and all needs attended. All safety measures in place; Bed in lowest position. Side rails up x2. Call light functioning and within reach. Will continue to closely monitor patient for s/s of withdrawal. Will endorse all pertinent information to AM nurse.
--- NOTE | 2018-05-22 07:40 | NUR ---
START OF SHIFT Pt is a 22 yr old male, AA&Ox4. Pt was admitted on 05/20/18 for Benzo/Opiate withdrawal and is on 3 day Subutex and 3 day Ativan taper as ordered. Received report from production supervisor off shift nurse. Pt received Zofran PRN, Motrin PRN and Nicotine gum PRN during the night. Pt slept for 6 hrs. Last COWS score was 15 and CIWA score was 16. Pt is observed guarded and flat affect. Pt is c/o left foot pain 7/10. Pt is noted disheveled with dirty finger nails and hands. Pt was encouraged to drink plenty of fluids for hydration. Safety precautions observed. call light is within reach. will continue to monitor.
[2018-05-22 08:03] VITALS: BP 127/91
[2018-05-22 08:27] LABS: BILIRUBIN,DIRECT 0.1 mg/dL (0.0-0.2); BILIRUBIN,TOTAL 0.3 mg/dL (0.2-1.0); CREATININE 0.9 mg/dL (0.6-1.3); MAGNESIUM 1.9 mg/dL (1.8-2.4); POTASSIUM 3.9 mmol/L (3.5-5.1); TOTAL PROTEIN, SERUM 6.9 g/dL (6.4-8.2)
[2018-05-22] MEDS: LORAZEPAM 1 MG TABLET PO SCH ×3 (08:45→20:58)
[2018-05-22] MEDS: IBUPROFEN 600 MG TABLET PO PRN (08:45)
[2018-05-22] MEDS: BUPRENORPHINE HCL 2 MG TAB.SUBL SL SCH ×3 (08:45→20:58)
[2018-05-22] MEDS: MULTIVITAMINS,THERAPEUTIC TABLET PO SCH (08:45)
[2018-05-22] MEDS: GABAPENTIN 300 MG CAPSULE PO SCH ×3 (08:46→20:57)
[2018-05-22] MEDS: busPIRone 10 MG TABLET PO SCH ×3 (08:46→17:23)
[2018-05-22] MEDS: BACLOFEN 10 MG TABLET PO SCH ×2 (08:46→20:58)
[2018-05-22] MEDS: VENLAFAXINE XR 75 MG CAP.SR.24H PO SCH (08:46)
[2018-05-22] MEDS: VALACYCLOVIR HCL 500 MG TABLET PO SCH (08:48)
--- NOTE | 2018-05-22 08:48 | NUR ---
PRN MEDICATION GIVEN/MEDICATION REFUSED Pt was given Motrin 600mg PO PRN for left foot pain 04/11. Pt is observed with facial grimacing. Pt refused to take Valtrex 1000mg PO as scheduled at 0900. Pt states he would take the medication when he has an outbreak of cold sores and states at this time he is not experiencing any outbreaks. Valtrex 1000mg PO was held and will f/u with . Pt is c/o abdominal cramping, mild nausea, muscle aches and anxiety and sweats. COWS score was 8 and CIWA score was 8. Subutex 2mg SL and Ativan 1mg PO as scheduled at 0900 was given as ordered. Encouraged increase fluid intake. Will continue to monitor.
--- NOTE | 2018-05-22 09:48 | NUR ---
PRN RE-ASSESSMENT Motrin PRN was effective. Pt continues to c/o pain on LLE but states pain level subsided. Encouraged increase fluid intake. will continue to monitor.
[2018-05-22 12:00] VITALS: BP 118/74
--- NOTE | 2018-05-22 12:00 | NUR ---
COWS SCORE 10, CIWA SCORE 9 Pt is observed with anxiety and is noted at picking at his skin. Pt is c/o abdominal cramping, sweats, and muscle aches. Pt is noted with fine tremors. COWS score was 10 and CIWA score was 9. Pt is noted with dirty hands and feet. Pt was encouraged to shower. Pt refuses to shower at this time. Will continue to monitor.
--- NOTE | 2018-05-22 13:46 | NUR ---
NSG NOTE Pt is positive for MRSA of the nares. MD was made aware. Pt was placed on contact isolation and is on Bactroban 2% oint Q12H to both nares, new order was noted and carried out.
[2018-05-22 14:06] LABS: HEPATITIS B SURFACE AG Negative (Negative)
[2018-05-22 16:00] VITALS: BP 152/94
--- NOTE | 2018-05-22 19:00 | NUR ---
END OF SHIFT Pt is a 22 yr old male, AA&Ox4. Pt has been noted with a depressive mood and his affective is flat and blunt. Pt was encouraged to attended group therapy but pt refused and he remained in his room isolative throughout the day. Pt is observed disheveled, odorous and with dirty hands and feet. Pt was encouraged to shower and agreed. Pt was given Motrin 600mg PO PRN for left LE pain r/t fx. Medication was mildly effective. Pt was encouraged increase fluids for hydration. Last COWS score was 8 and CIWA score was 8 at 1600. Safety precautions observed. Endorsed to manufacturing supervisor 2nd shift nurse to continue with care.
--- NOTE | 2018-05-22 19:30 | NUR ---
Start of shift note Received report from day shift Nurse. Patient is 22 year old female admitted for Heroin and [place] withdrawal. Patient is on 2nd day of his 3 day Ativan and 3 day Subutex taper. Patient is on Isolation due to MRSA of nares. Patient has fracture on Left heel. Patient was given PRN Motrin. Last COWS 8 and CIWA 8. Patient alert and oriented x 4. Garbage around room and clothes everywhere in the room. Patient ambulating via wheelchair. Patient presents with flat affect, depressed mood , sad , worried, disheveled and eye avoidant. Patient c/o pain on left ankle and heel. Safety measures in place. Call light in reach. Will continue to monitor.
[2018-05-22] MEDS: NICOTINE POLACRILEX 4 MG GUM-PK OF TEN BC PRN (19:44)
--- NOTE | 2018-05-22 19:44 | NUR ---
PRN Nicotine gum administration Patient requests to have nicotine gum
[2018-05-22] MEDS: KETOROLAC TROMETHAMINE 30 MG INJ IM PRN (19:51)
--- NOTE | 2018-05-22 19:51 | NUR ---
PRN Toradol IM administration Patient c/o 05/12 pain on left heel and ankle fracture. Will monitor for effectiveness
[2018-05-22 20:00] VITALS: BP 118/79
--- NOTE | 2018-05-22 20:00 | NUR ---
COWS and CIWA assessment Patient presents with anxiety, restlessness, irritable, agitation, nauseated and pain on left heel/ankle. COWS 11 and CIWA 11.
--- NOTE | 2018-05-22 20:26 | NUR ---
PRN Toradol IM re-assessment Patient states he feels much better. Pain is tolerable at time. Will continue to monitor
[2018-05-22] MEDS: MUPIROCIN 2% OINT 22 GM TUBE NS SCH (20:57)
[2018-05-22] MEDS: QUETIAPINE FUMARATE 100 MG TABLET PO SCH (21:13)
[2018-05-22] MEDS: HYDROXYZINE PAMOATE 25 MG CAPSULE PO PRN (21:13)
--- NOTE | 2018-05-22 21:13 | NUR ---
PRN Vistaril administration Patient c/o anxiety. Will monitor for effectiveness
--- NOTE | 2018-05-22 22:13 | NUR ---
PRN Vistaril re-assessment Patient states Vistaril helpful and effective. Patient is less anxious
[2018-05-23] VITALS: BP 111/58
--- NOTE | 2018-05-23 | NUR ---
COWS and CIWA deferred Patient lying in bed with eyes closed. Respiration even and unlabored. Will continue to monitor.
--- NOTE | 2018-05-23 | NUR ---
CIWA deferred Patient lying in bed with eyes closed. Respiration even and unlabored. Will continue to monitor. Addendum: 05/23/18 at 0059 by CLARENCE SY LVN Error: Patient is on CIWA and COWS
[2018-05-23] MEDS: NICOTINE POLACRILEX 4 MG GUM-PK OF TEN BC PRN ×3 (00:30→20:31)
--- NOTE | 2018-05-23 00:31 | NUR ---
NICORETTE GUM Pt requesting for Nicorette gum. Medication administered as ordered.
--- NOTE | 2018-05-23 03:51 | NUR ---
PRN Med Nicorette nicotine gum 4mg PO given for nicotine withdrawal. Will continue to monitor, reporting to nurse to reassess in 1 hour.
[2018-05-23 04:00] VITALS: BP 120/81
--- NOTE | 2018-05-23 04:00 | NUR ---
COWS and CIWA assessment Patient in bed awake , presents with anxiety , restlessness and sweating. COWS 7 and CIWA 5 upon assessment. Relaxation technique provided. Per patient he will try to go back to sleep. Will continue to monitor.
--- NOTE | 2018-05-23 07:15 | NUR ---
End of shift note Patient slept 5 hours. Fluid Intake 800 ml. Voided x 1. No BM . Patient slept intermittently during shift. Patient is on Isolation due to MRSA of nares. On Bactroban ointment . Patient ambulating via wheelchair. Scheduled medication and taper given as ordered.Patient has fracture on Left heel . Patient requested for Nicotine gum and was c/o left heel/ ankle pain . PRN Nicotine gum and Toradol IM given, effective. Patient presented with flat affect, depressed mood , sad and worried . Patient was given PRN Vistaril and Nicotine gum. At 0351, woke up and requested for Nicotine gum. Safety measures in place. Call light in reach. Will continue to monitor. Last COWS 7 and CIWA 5.
--- NOTE | 2018-05-23 07:30 | NUR ---
Start of Shift Legal Records Manager received report on 22 year old male admitted on 05/20/18 for medical management of Benzodiazepine and Opiate withdrawals. Pt endorses NKA, full code and regular diet. Pt denies any PMH, aside from surgery of the bi-lateral shoulders. Pt currently with cast on left heal due to current fracture, pt uses wheelchair and crutches for ambulation. Pt currently on MRSA contact precautions. PPH of depression, anxiety, and insomnia. Pt scheduled to complete both an Ativan and Subutex taper today. Last CIWA 5 and COWS 7, per NOC report. Pt was administered PRN Toradol(IM for pain) and Vistaril(anxiety) on NOC, per report. Legal Records Manager encounters pt in pts room with pt resting. Pt is A/O x4 and able to make needs known. Linear thought process and clear speech pattern. Pt with a flat affect and congruent mood. Pt is calm and cooperative. Endorses nausea, chills, body aches and has tremors and is diaphoretic and anxious. Bed in low position with wheels locked and side rails up x2. Will continue to monitor, support and encourage according to plan of care.
--- NOTE | 2018-05-23 08:00 | NUR ---
CIWA 6/COWS 7 Pt complains of nausea and chills, with anxiety. Pt is diaphoretic and has pain 5/10 related to his heal fracture. Will continue to monitor, support and encourage according to plan of care.
[2018-05-23 08:26] VITALS: BP 120/87
[2018-05-23] MEDS ORDERED: BUPRENORPHINE HCL 2 MG TAB.SUBL SL SCH (09:00)
[2018-05-23] MEDS: GABAPENTIN 300 MG CAPSULE PO SCH ×3 (09:29→20:07)
[2018-05-23] MEDS: BACLOFEN 10 MG TABLET PO SCH ×2 (09:29→20:07)
[2018-05-23] MEDS: busPIRone 10 MG TABLET PO SCH ×3 (09:29→17:14)
[2018-05-23] MEDS: MUPIROCIN 2% OINT 22 GM TUBE NS SCH ×2 (09:29→20:08)
[2018-05-23] MEDS: LORAZEPAM 1 MG TABLET PO SCH ×2 (09:29→20:07)
[2018-05-23] MEDS: KETOROLAC TROMETHAMINE 30 MG INJ IM PRN (09:30)
--- NOTE | 2018-05-23 09:30 | NUR ---
PRN Toradol(IM) Pt complain of pain /10, mostly related to the fractured heal, but also complaints of generalized body discomfort. Rubber Grinder administered medication per MD order with pt tolerating well. Will continue to monitor, support and encourage according to plan of care.
[2018-05-23] MEDS: HYDROXYZINE PAMOATE 25 MG CAPSULE PO PRN (09:40)
[2018-05-23] MEDS: MULTIVITAMINS,THERAPEUTIC TABLET PO SCH (09:40)
[2018-05-23] MEDS: VENLAFAXINE XR 75 MG CAP.SR.24H PO SCH (09:40)
--- NOTE | 2018-05-23 09:40 | NUR ---
PRN Vistaril(anxiety) Pt is anxious and restless, requests anxiety medication. Pt also complain of itching and wants medication for relief. Health Aid administers medication per MD order with pt tolerating well. Will continue to monitor, support and encourage according to plan of care.
--- NOTE | 2018-05-23 10:00 | NUR ---
PRN Toradol Re-Assessment Pt rates pain as 5/10, stating, " I am sara used to this pain." Will continue to monitor, support and encourage according to plan of care.
--- NOTE | 2018-05-23 10:40 | NUR ---
JAZZ [place] Re-Assessment Pt endorses some relief, stating, " I am still anxious about my discharge." Will continue to monitor, support and encourage according to plan of care.
--- NOTE | 2018-05-23 10:49 | NUR ---
Therapist prompted client to attend twice daily group therapy sessions.
[2018-05-23 12:45] VITALS: BP 119/82
--- NOTE | 2018-05-23 12:48 | NUR ---
COWS 8/CIWA 7 Pt with muscle spasms, chills, and pain in his fractured heal. Pt has diaphoresis and anxiety and is restless. Will continue to monitor, support and encourage according to plan of care.
[2018-05-23 16:50] VITALS: BP 131/76
--- NOTE | 2018-05-23 16:52 | NUR ---
CIWA 7/COWS 8 Pt is anxious and restless with complaints of nausea. Will continue to monitor, support and encourage according to plan of care.
--- NOTE | 2018-05-23 19:00 | NUR ---
End of Shift Rail Car Operator provided report on 22 year old male admitted on 05/20/18 for medical management of Benzodiazepine and Opiate withdrawals. Pt endorses NKA, full code and regular diet. Pt denies any PMH, aside from surgery of the bi-lateral shoulders. Pt currently with cast on left heal due to current fracture, pt uses crutches for ambulation. Pt currently on MRSA contact precautions, with MRSA of the nares. PPH of depression, anxiety, and insomnia. Pt completed Subutex taper and will complete Ativan taper this evening. Last CIWA 7 and COWS 8. Pt was administered PRN Toradol(IM for pain) and Vistaril(anxiety) this shift. Pt is A/O x4 and makes his needs known. Linear thought process and clear speech pattern. Calm and cooperative, withdrawn and guarded. Pt with a flat affect and congruent mood. Pt endorses some nausea, chills and muscle aches. Pt is restless and anxious. Bed in low position with wheels locked and side rails up x2.
--- NOTE | 2018-05-23 19:30 | NUR ---
Start of shift note Received report from day shift Nurse. Patient is a 22 year old male admitted for Heroin and [place] withdrawal. Continue on Ativan taper, last dose of Subutex given in AM. Patient was given PRN Toradol IM and Vistaril given. Last COWS 8 and CIWA 7. Patient's room dirty, garbage around room, clothes everywhere in the room and dirty bed sheets. Patient presents with flat affect, depressed mood, sad , worried, unshaven, anxious , restless , irritable and pain on left heel. Safety measures in place. Call light in reach. Will continue to monitor.
[2018-05-23 20:00] VITALS: BP 144/86
--- NOTE | 2018-05-23 20:00 | NUR ---
COWS and CIWA assessment Patient presents with flat affect, depressed mood, sad , worried, unshaven, anxious , restless , irritable and pain on left heel. COWS 8 and CIWA 8.
[2018-05-23] MEDS: QUETIAPINE FUMARATE 100 MG TABLET PO SCH (20:08)
--- NOTE | 2018-05-23 20:31 | NUR ---
PRN Nicotine gum administration Patient requests for Nicotine gum
--- NOTE | 2018-05-24 | NUR ---
COWS and CIWA deferred Patient lying in bed with eyes closed. Respiration even and unlabored. Will continue to monitor
--- NOTE | 2018-05-24 01:40 | NUR ---
COWS and CIWA assessment Patient awake and was asking for snacks. Patient anxious and restless, no other complaints at this time. COWS 6 and CIWA 5. Will continue to monitor.
[2018-05-24 04:00] VITALS: BP 129/72
--- NOTE | 2018-05-24 04:00 | NUR ---
COWS and CIWA deferred Patient lying in bed with eyes closed. Respiration even and unlabored. No facial grimacing. Will continue to monitor
--- NOTE | 2018-05-24 07:17 | NUR ---
End of shift note Patient slept 6 hours. Fluid intake 1,710 ml . Voided x 3 . BM x 4. Monitored patient throughout shift . Scheduled medication and taper given as ordered. Patient presented with flat affect, depressed mood, sad , worried, unshaven, anxious , restless , irritable and pain on left heel. Patient was given PRN Nicotine gum. Patient states he had loose BM but refused medication. Encouraged fluids. Safety measures in place. Call light in reach. Will continue to monitor. Last COWS 6 and CIWA 5 .
--- NOTE | 2018-05-24 07:30 | NUR ---
Start of Shift Timber Repairer received report on 22 year old male admitted on 05/20/18 for medical management of Benzodiazepine and Opiate withdrawals. Pt endorses NKA, full code and regular diet. Pt denies any PMH, aside from surgery of the bi-lateral shoulders. Pt currently with cast on left heal due to current fracture, pt uses crutches for ambulation, tolerates well. Pt currently on MRSA contact precautions. PPH of depression, anxiety, and insomnia. Pt Currently has completed a Subutex and Ativan taper and is preparing for discharge tomorrow. Last CIWA 5 and COWS 6, per NOC report. Pt was administered PRN Nicotine gum on NOC, per report. Timber Repairer encounters pt in pts room, resting with eyes closed, even and unlabored respiration noted. Bed in low position with wheels locked and side rails up x2. Will continue to monitor, support and encourage according to plan of care.
--- NOTE | 2018-05-24 08:00 | NUR ---
CIWA 4/COWS 5 Pt is anxious and restless with moist skin. Pt complains of muscle pain and heal pain. Will continue to monitor, support and encourage according to plan of care.
[2018-05-24 08:11] VITALS: BP 144/94
[2018-05-24] MEDS: MUPIROCIN 2% OINT 22 GM TUBE NS SCH ×2 (09:00→20:50)
[2018-05-24] MEDS: MULTIVITAMINS,THERAPEUTIC TABLET PO SCH (09:12)
[2018-05-24] MEDS: BACLOFEN 10 MG TABLET PO SCH ×2 (09:12→20:50)
[2018-05-24] MEDS: busPIRone 10 MG TABLET PO SCH ×3 (09:12→17:07)
[2018-05-24] MEDS: VENLAFAXINE XR 75 MG CAP.SR.24H PO SCH (09:12)
[2018-05-24] MEDS: GABAPENTIN 300 MG CAPSULE PO SCH ×3 (09:12→20:49)
[2018-05-24] MEDS: KETOROLAC TROMETHAMINE 30 MG INJ IM PRN ×2 (09:53→17:08)
--- NOTE | 2018-05-24 09:53 | NUR ---
PRN Toradol(IM) Pt complains of pain 05/12, now more related to withdrawal and back pain, as well as fractured heal. Will continue to monitor, support and encourage according to plan of care.
--- NOTE | 2018-05-24 10:23 | NUR ---
PRN Toradol Re-Assessment Pt endorses some releif, rating pain at 5/10. Will continue to monitor, support and encourage according to plan of care.
[2018-05-24] MEDS: NICOTINE POLACRILEX 4 MG GUM-PK OF TEN BC PRN (11:00)
[2018-05-24 12:00] VITALS: BP 132/98
--- NOTE | 2018-05-24 12:00 | NUR ---
CIWA 7/COWS 7 Pt is anxious and restless, complains of nausea and back discomfort. Will continue to monitor, support and encourage according to plan of care.
[2018-05-24] MEDS: METHOCARBAMOL 750 MG TABLET PO PRN (13:07)
--- NOTE | 2018-05-24 13:07 | NUR ---
PRN Carl Pt complains of back discomfort, spasms, and cramps. Will continue to monitor, support and encourage according to plan of care.
--- NOTE | 2018-05-24 14:07 | NUR ---
JAZZ Henry Re-Assessment Pt endorses some relief, " it helps some, I wish the pain would go all away." Will continue to monitor, support and encourage according to plan of care.
[2018-05-24 16:30] VITALS: BP 150/85
--- NOTE | 2018-05-24 16:30 | NUR ---
CIWA 6/COWS 5 Pt is anxious and restless and complains of nausea and back pain. Will continue to monitor, support and encourage according to plan of care.
--- NOTE | 2018-05-24 17:08 | NUR ---
PRN Toradol(IM) Pt complains of pain 8/10 in lower back and left heal. Operating Engineer administered medication per MD order with pt tolerating well. Will continue to monitor, support and encourage according to plan of care.
--- NOTE | 2018-05-24 17:38 | NUR ---
PRN Toradol Re-Assessment Pt endorses relief, states " it always helps a bit." Will continue to monitor, support and encourage according to plan of care.
--- NOTE | 2018-05-24 19:09 | NUR ---
End of Shift Office Sweeper provided report on 22 year old male admitted on 05/20/18 for medical management of Benzodiazepine and Opiate withdrawals. Pt endorses NKA, full code and regular diet. Pt denies any PMH, aside from surgery of the bi-lateral shoulders. Pt currently with cast on left heal due to current fracture, pt uses crutches for ambulation, tolerates well. Pt currently on MRSA contact precautions. PPH of depression, anxiety, and insomnia. Pt Currently has completed a Subutex and Ativan taper and is preparing for discharge tomorrow. Last CIWA 6 and COWS 5, recorded at 1630. Pt was administered PRN IM Toradol(pain) x2 and Robaxin(muscle aches)by pattern chart writer. Pt is A/O x4 and makes needs known. Linear thought process with clear speech pattern. Calm, cooperative and pleasant with pattern chart writer. Flat affect and depressed mood. Pt is anxious and restless. Pt has complaints of myalgia and heal pain. Pt is visible on the unit and attends groups. Bed in low position with wheels locked and side rails up x2.
[2018-05-24 20:00] VITALS: BP 141/87
--- NOTE | 2018-05-24 20:00 | NUR ---
Start of Shift Pt is a 22 year old male admitted for Opiates and Benzodiazepine withdrawal, placed on a 3 day Subutex taper and 3 day Ativan taper. Pt completed taper and is scheduled for discharge tomorrow, 05/25/2018. During time of assessment, pt presents with anxiety due to discharge tomorrow, pt is flushed, reports muscle aches and restlessness, COWS 4 and CIWA 5 scheduled medications due. Pt ambulates with crutches due to cast on left heal (pt has a fracture), wheelchair also available. Pt is on MRSA contact precautions. Safety measures in place, will continue to monitor.
[2018-05-24] MEDS ORDERED: IBUP-1955 PO (20:05)
[2018-05-24] MEDS ORDERED: METH-406 PO (20:05)
[2018-05-24] MEDS: QUETIAPINE FUMARATE 100 MG TABLET PO SCH (20:50)
[2018-05-25] VITALS: BP 112/78
--- NOTE | 2018-05-25 | NUR ---
CIWA/COWS Deferred CIWA/COWS deferred d/t pt sleeping, to assess while pt is awake as ordered. Pt is sleeping, resp even/unlabored, safety measures in place, will continue to monitor.
--- NOTE | 2018-05-25 04:00 | NUR ---
CIWA/COWS Deferred CIWA/COWS deferred d/t pt sleeping, to assess while pt is awake as ordered. Pt refused to be woken up for 0400 VS assessment. Pt is sleeping, resp even/unlabored, safety measures in place, will continue to monitor.
[2018-05-25] MEDS: NICOTINE POLACRILEX 4 MG GUM-PK OF TEN BC PRN (06:44)
[2018-05-25] MEDS: KETOROLAC TROMETHAMINE 30 MG INJ IM PRN (06:49)
--- NOTE | 2018-05-25 06:50 | NUR ---
PRN Toradol Inj & Nicotine Gum PRN Administration Pt reported pain in right leg, rated 8/10. Pt requested relief. Toradol 30mg inj PRN administered. Pt also requested Nicotine gum - administered. Safety measures in place, will endorsed on today shift nurse to monitor effectiveness of injection.
--- NOTE | 2018-05-25 07:05 | NUR ---
End of Shift Pt is a 22 year old male admitted for Opiates and Benzodiazepine withdrawal, placed on a 3 day Subutex taper and 3 day Ativan taper. Pt completed taper and is scheduled for discharge today, 05/25/2018. During Shift, pt presents with anxiety due to discharge scheduled today reassurance provide and education pt on using new learned coping mechanisms. Pt was noted to be flushed, reported muscle aches and restlessness. Scheduled medications administered, latest COWS 4 and CIWA 5. At 0650, Toradol injection and nicotine gum PRN administered, will endorse onto day shift nurse to monitor effective. Pt ambulates with crutches due to cast on left heal (pt has a fracture), wheelchair also available. Pt is on MRSA contact precautions. Pt slept for 7 hours, intake of 855 ml PO and voids x2. Safety measures in place. Endorsed onto day shift nurse.
--- NOTE | 2018-05-25 07:37 | NUR ---
START OF SHIFT Pt is a 22 yr old male, AA&Ox4. Pt was admitted on 05/20/18 for Benzo/Opiate withdrawal and completed a 3 day Subutex and 3 day Ativan taper as ordered. Received report from overnight cashier nurse. Pt received Nicotine gum PRN during the night and received Toradol IM PRN this morning at 0649 for left foot pain 8/10. Pt continues to c/o left foot pain but pain level subsided to 4/10. Pt was able to slept for 7 hrs during the night. Last COWS score was 4 and CIWA score was 5. Pt states of felling anxious of being discharged. Pt is observed with flat affect. 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 Pt is educated on hand washing techniques. Pt was able to verbalize understanding. Pt is to be discharged today to [facility]. Safety precautions observed. Call light is within reach. Will continue to monitor.
[2018-05-25 08:00] VITALS: BP 143/85
--- NOTE | 2018-05-25 08:00 | NUR ---
COWS 5, CIWA 5 pt is c/o anxiety, agitation, sweats and muscle aching 4/10. COWS score was 5 and CIWA score was 5. Encouraged increase fluid intake for hydration. Will continue to monitor.
[2018-05-25] MEDS: GABAPENTIN 300 MG CAPSULE PO SCH (08:50)
[2018-05-25] MEDS: MULTIVITAMINS,THERAPEUTIC TABLET PO SCH (08:50)
[2018-05-25] MEDS: VENLAFAXINE XR 75 MG CAP.SR.24H PO SCH (08:50)
[2018-05-25] MEDS: MUPIROCIN 2% OINT 22 GM TUBE NS SCH (08:50)
[2018-05-25] MEDS: BACLOFEN 10 MG TABLET PO SCH (08:50)
[2018-05-25] MEDS: busPIRone 10 MG TABLET PO SCH (08:50)
[2018-05-25 12:00] VITALS: BP 134/82
--- NOTE | 2018-05-25 13:00 | NUR ---
DISCHARGED NOTE Pt is a 22 yr old male, AA&Ox4. Pt was admitted on 05/20/18 for Opiate/Benzo withdrawal and has completed a 3 day Subutex and 3 day Ativan taper as ordered. Medication was barak well. Pt was cooperative with medication regimen and plan of care. Pt was c/o anxiety and left lower extremity pain 4/10. Pt states he is able to cope with anxiety level. No SI/HI noted. Pt was educated on discharged summary and prescriptions. Pt was able to verbalize understanding. Pt was discharged off the unit at 1248 in stable condition. Pt was discharged to [facility]. Pt left with all belongings, valuables and home medications.
== END 2018-05-25 12:48 | disposition home or self-care (01) | DRG 895 ==
LOC: SRC 05-20 18:07
PROVIDERS: ADMIT Internal Medicine; ATTEND Internal Medicine
PROC: HZ2ZZZZ Detoxification Services for Substance Abuse Treatment (ICD-10-PCS; principal; 2018-05-20)
PROC: HZ41ZZZ Group Counseling for Substance Abuse Treatment, Behavioral (ICD-10-PCS; 2018-05-21)
PROC: HZ31ZZZ Individual Counseling for Substance Abuse Treatment, Behavioral (ICD-10-PCS; 2018-05-23)
DX: F11.23 Opioid dependence with withdrawal (principal); F13.230 Sedative, hypnotic or anxiolytic dependence with withdrawal, uncomplicated; F15.229 Other stimulant dependence with intoxication, unspecified; F14.21 Cocaine dependence, in remission; S92.002D Unspecified fracture of left calcaneus, subsequent encounter for fracture with routine healing; W19.XXXD Unspecified fall, subsequent encounter; F17.210 Nicotine dependence, cigarettes, uncomplicated; E87.6 Hypokalemia; R74.0 Nonspecific elevation of levels of transaminase and lactic acid dehydrogenase [LDH]; F32.9 Major depressive disorder, single episode, unspecified; F41.9 Anxiety disorder, unspecified; Z86.74 Personal history of sudden cardiac arrest; Z22.322 Carrier or suspected carrier of Methicillin resistant Staphylococcus aureus; Z81.8 Family history of other mental and behavioral disorders; Z81.3 Family history of other psychoactive substance abuse and dependence
CPT/HCPCS: 36415; 70030-TC; 80307; 83690; 83735; 84443; 85025; 86592; 86705; 86803; 87340; 87806; A4663; G0480; J1885; Q0162